=== PATIENT | male | born 1960 | race Caucasian/White ===

== ENCOUNTER → 2017-03-19 | Outpatient (CLI) | payer BC ==
--- NOTE | 2017-03-19 09:22 | CT ---
EXAMINATION TYPE: CT abdomen pelvis w con DATE OF EXAM: 03/19/2017 COMPARISON: 03/12/2016 HISTORY: Carcinoid Tumor CT DLP: 1084 mGycm CONTRAST: CT scan of the abdomen and pelvis is performed with Oral Contrast and with IV Contrast, patient injec adriana with 100 mL of Omnipaque 300. FINDINGS: LUNG BASES-: No visible nodule. No infiltrate. LIVER/GB: No calcified gallstones. No solid space occupying hepatic lesion. Tiny cyst left hepatic lobe lateral segment measuring 5 mm. Biliary tree is of normal caliber. PANCREAS: No inflammation. No distinct mass. SPLEEN: No splenic enlargement. No lesion seen. ADRENALS: No nodule. No thickening. KIDNEYS/BLADDER: No hydronephrosis. No nephrolithiasis. No disctinct renal mass. Urinary bladder g rossly unremarkable. BOWEL: Normal appendix. Normal bowel caliber. No inflammation. GENITAL ORGANS: Prostate enlargement with central glandular calcification. LYMPH NODES: Noted are prominent periportal lymph nodes measuring up to 1.5 cm minimally enlarged rel ative to the prior study with maximal measurement of 1.4 cm. There is an enlarged SMA axis lymph node measuring 1.4 cm versus 7 mm previously. There is also an enlarged aorto intracaval lymph node which currently measures 1.2 cm in short axis versus 6 mm previously. Stable small lymph nodes are subcent imeter in size within the small bowel mesentery. No inguinal or iliac chain adenopathy appreciated. AORTA: No significant abnormality. OSSEOUS STRUCTURES: No significant abnormality is seen. OTHER: Small focus of soft tissue within the small bowel mesentery measuring approximately 7 mm is un changed and may reflect site of carcinoid tumor. Overall there is no significant interval change. No new soft tissue masses are identified. IMPRESSION: 1. Stable focus of soft tissue within the small bowel mesentery which may reflect a residual carcinoi d. 2. Nonspecific Enlarging lymph nodes within the marko hepatis, SMA axis and aorto intracaval regions.
== END | disposition home or self-care (01) ==
LOC: RADCTMAIN 08:24
PROVIDERS: ATTEND Internal Medicine Hematology & Oncology
DX: C7A.019 Malignant carcinoid tumor of the small intestine, unspecified portion (principal); Z91.030 Bee allergy status; Z88.8 Allergy status to other drugs, medicaments and biological substances
CPT/HCPCS: 74177; Q9967

== ENCOUNTER → 2018-03-29 | Outpatient (CLI) | payer BC ==
--- NOTE | 2018-03-29 13:49 | CT ---
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 Delayed images through the kidneys and coronal/sagittal reconstructions perform ed. CT DLP: 1200 mGycm Automated exposure control for dose reduction was used. FINDINGS: Heart normal size without pericardial effusion. Tiny hiatal hernia. 5 mm inferior lingular pulmonary nodule axial image 1. Suggestion of small bronchial lymph nodes extending into the lower lobes, for e xample, axial images 1, 5, 6, and 7. No pleural effusion. Subcentimeter hypodensity left hepatic dome too small for accurate CT characterization, unchanged. Gallbladder, adrenal glands, kidneys, spleen with hilar splenule, pancreas appear within normal limit s. Redemonstrated upper retroperitoneal lymphadenopathy. Lymph nodes are either stable to slightly large r, for example: -left para-aortic axial image 29 measuring 1.2 cm, stable, - Upper aortocaval measuring 9 mm versus 8 mm, previously, - Aortocaval at the level of the kidneys measuring 1.4 cm versus 1.2 cm, previously, - Left para-aortic at the level of the kidneys measuring 9 mm versus 5 mm, previously - Retrocaval measuring 8 mm versus 7 mm, previously A couple mid mesenteric lymph nodes are borderline to mildly enlarged measuring 7 mm and 8 mm versus 7 mm, previously. Stable irregular soft tissue density in the right paramedian mid mesentery, axial image 45 measures 1 .9 cm, unchanged. No dilated small bowel, free fluid, or free air. There is moderate stool burden with oral contrast pr ogressed to the. No pericolonic inflammatory changes. Prostate gland enlarged at 4.7 cm with central prostatic calcifications and hypertrophy of the median lobe impressing into the posterior bladder base. A prominent right external iliac chain lymph node measures 7 mm. Prominent left external iliac chain lymph node measures 9 mm. These are unchanged. No abnormal fluid collection in the pelvis. Bones: Degenerative changes at the hips and right SI joint and degenerative disc disease L5-S1 along with bilateral L5 pars defects. IMPRESSION: 1. UNCHANGED IRREGULAR SOFT TISSUE DENSITY IN THE RIGHT PARAMEDIAN MID MESENTERY MEASURES 1.9 CM, POS SIBLY SITE OF TREATED CARCINOID. 2. UPPER RETROPERITONEAL AND A FEW SCATTERED MESENTERIC LYMPH NODES ARE BORDERLINE TO MILDLY ENLARGED AND ARE EITHER STABLE TO SLIGHTLY INCREASED IN SIZE, FOR EXAMPLE, AN AORTOCAVAL LYMPH NODE MEASURES 1.4 CM VERSUS 1.2 CM, ON 03/19/2017 AND 6 MM ON 03/12/2016. VERY SLOW AND INDOLENT PROGRESSION IS DIFFICU LT TO EXCLUDE. 3. SUGGESTION OF SOME SMALL BRONCHIAL LYMPH NODES IN THE VISUALIZED LOWER LOBES. ALSO, 5 MM INFERIOR LINGULAR PULMONARY NODULE. CONSIDER CONTRAST ENHANCED CT CHEST TO SURVEY THE LUNGS. 4. CORRELATE FOR BPH GIVEN MEDIAN LOBE HYPERTROPHY IMPRESSING ON THE POSTERIOR BLADDER BASE. 5. BILATERAL L5 PARS DEFECTS.
== END | disposition home or self-care (01) ==
LOC: RADCTMAIN 09:57
PROVIDERS: ATTEND Internal Medicine Hematology & Oncology
DX: R59.0 Localized enlarged lymph nodes (principal); R91.1 Solitary pulmonary nodule; C7A.019 Malignant carcinoid tumor of the small intestine, unspecified portion
CPT/HCPCS: 74177; Q9967

== ENCOUNTER 2020-04-25 12:48 | Inpatient (IN) | payer BC ==
[2020-04-25] MEDS ORDERED: SODIUM CHLORIDE 0.9% 500 ML 500 ML IV STA (13:05)
[2020-04-25] MEDS ORDERED: DEXTROSE 5% IN WATER 100 ML with AMIODARONE 150 MG IV ONE ×2 (13:05→13:39)
[2020-04-25] MEDS ORDERED: AMIODARONE 360 MG in DEXTROSE 5% IN WATER 200 ML IV ONE ×2 (13:05)
--- NOTE | 2020-04-25 13:22 | ED ---
General Adult HPI - General Chief complaint: Arrhythmia/Palpitations Stated complaint: Palpitations Time Seen by Provider: 04/25/20 13:00 Source: patient, RN notes reviewed, old records reviewed Mode of arrival: ambulatory Limitations: no limitations - History of Present Illness Initial comments: This is a 59-year-old male who presents emergency Department complaining that over the last couple of days he has noted his PVCs returning. Patient states he felt a little bit lightheaded as well. Patient states he's had a history of PVCs and was started on a beta ronny and that has been working over the last month. Patient states about 2 days ago he felt as though it stopped working. He PVCs on a regular basis. Patient denies any chest pain. Patient denies any fast heart rate that he appreciated. Patient denies any fever chills per patient denies any passing out episodes. Patient denies any headache patient denies numbness weakness. Patient is abdominal pain patient denies nausea vomiting diarrhea. - Related Data Home Medications Medication Instructions Recorded Confirmed DULoxetine HCL [Cymbalta] 60 mg PO HS 02/15/14 04/25/20 Omeprazole [PriLOSEC] 20 mg PO HS 02/15/14 04/25/20 lisinopriL [Zestril] 10 mg PO HS 02/15/14 04/25/20 Ascorbic Acid [Vitamin C] 500 mg PO DAILY 05/12/18 04/25/20 Cholecalciferol (Vitamin D3) 2,000 unit PO DAILY 05/12/18 04/25/20 [Vitamin D3] Melatonin 5 mg PO HS 05/12/18 04/25/20 Multivitamin [Men's Multi-Vitamin] 1 tab PO DAILY 05/12/18 04/25/20 EPINEPHrine (Auto Inject) [Epipen] 0.3 mg IM ONCE PRN 04/25/20 04/25/20 Metoprolol Tartrate [Lopressor] 12.5 mg PO HS 04/25/20 04/25/20 Metoprolol Tartrate [Lopressor] 25 mg PO DAILY 04/25/20 04/25/20 Montelukast [Singulair] 10 mg PO HS 04/25/20 04/25/20 Rosuvastatin [Crestor] 10 mg PO HS 04/25/20 04/25/20 Allergies Allergy/AdvReac Type Severity Reaction Status Date / Time venom-honey bee Allergy Anaphylaxis Verified 04/25/20 14:15 [bee venom (honey bee)] venlafaxine [From Effexor] AdvReac Rash/Hives Verified 04/25/20 14:15 Review of Systems ROS Statement: Those systems with pertinent positive or pertinent negative responses have been documented in the HPI. ROS Other: All systems not noted in ROS Statement are negative. Past Medical History Past Medical History: Cancer, Hyperlipidemia, Hypertension Additional Past Medical History / Comment(s): Skin CA, 3 iron infusions over the last month History of Any Multi-Drug Resistant Organisms: None Reported Past Surgical History: No Surgical Hx Reported Additional Past Surgical History / Comment(s): EGD/Colonoscopy; Hx GI bleed Past Anesthesia/Blood Transfusion Reactions: No Reported Reaction Past Psychological History: Anxiety, Depression Smoking Status: Never smoker Past Alcohol Use History: None Reported Past Drug Use History: None Reported - Past Family History Mother Family Medical History: Cancer Additional Family Medical History / Comment(s): Bowel CA General Exam - General Exam Comments Initial Comments: GENERAL: Patient is well-developed and well-nourished. Patient is nontoxic and well-hyd rated and is in mild distress. ENT: Neck is soft and supple. No significant lymphadenopathy is noted. Oropharynx is clear. Moist mucous membranes. Neck has full range of motion without eliciting any pain. EYES: The sclera were anicteric and conjunctiva were pink and moist. Extraocular movements were intact and pupils were equal round and reactive to light. Eyelids were unremarkable. PULMONARY: Unlabored respirations. Good breath sounds bilaterally. No audible rales rhonchi or wheezing was noted. CARDIOVASCULAR: Patient is tachycardic at 180 beats a minute ABDOMEN: Soft and nontender with normal bowel sounds. SKIN: Skin is clear with no lesions or rashes and otherwise unremarkable. NEUROLOGIC: Patient is alert and oriented x3. Cranial nerves II through XII are grossly int act. Motor and sensory are also intact. Normal speech, volume and content. Symmetrical smile. MUSCULOSKELETAL: Normal extremities with adequate strength and full range of motion. LYMPHATICS: No significant lymphadenopathy is noted PSYCHIATRIC: Normal psychiatric evaluation. Limitations: no limitations Course Vital Signs 04/25/20 04/25/20 04/25/20 12:52 13:54 14:00 Temperature 97.9 F Pulse Rate 38 L 68 66 Respiratory 18 16 16 Rate Blood Pressure 50/22 95/74 96/73 O2 Sat by Pulse 97 100 100 Oximetry Medical Decision Making - Medical Decision Making EKG shows a ventricular tachycardia 184 bpm QRS is under 22 QTC is 296 QTC is 518. Patient was given 150 of amiodarone and then started on amiodarone drip. I spoke with cardiology and they came down and see the patient wanted to cardiovert the patient. Patient was given 5 of Versed for the cardioversion and then we cardiovert the patient with 100 J that was synchronized. Patient converted into a sinus rhythm. EKG was done shows a sinus rhythm at 75 bpm CO interval is 223 is 90 QT interval 442 QTC is 493. Patient's EKG shows T-wave inversions and some ST segment depression in the precordial leads V3 through V6 Patient was started on heparin cardiology decided to take the patient and the component lab tech tomorrow. Patient's troponin was mildly elevated at 0.1 - Lab Data Result diagrams: 04/25/20 13:09 04/25/20 13:09 Lab Results 04/25/20 04/25/20 04/25/20 Range/Units 13:09 13:09 13:09 WBC 13.5 H (3.8-10.6) k/uL RBC 5.13 (4.30-5.90) m/uL Hgb 15.1 (13.0-17.5) gm/dL Hct 46.2 (39.0-53.0) % MCV 90.0 (80.0-100.0) fL MCH 29.4 (25.0-35.0) pg MCHC 32.7 (31.0-37.0) g/dL RDW 13.8 (11.5-15.5) % Plt Count 379 (150-450) k/uL Neutrophils % 77 % Lymphocytes % 12 % Monocytes % 8 % Eosinophils % 2 % Basophils % 1 % Neutrophils # 10.4 H (1.3-7.7) k/uL Lymphocytes # 1.6 (1.0-4.8) k/uL Monocytes # 1.0 (0-1.0) k/uL Eosinophils # 0.3 (0-0.7) k/uL Basophils # 0.1 (0-0.2) k/uL PT 9.9 (9.0-12.0) sec INR 0.9 (<1.2) APTT 24.8 (22.0-30.0) sec Sodium 137 (137-145) mmol/L Potassium 5.1 (3.5-5.1) mmol/L Chloride 103 (98-107) mmol/L Carbon Dioxide 24 (22-30) mmol/L Anion Gap 10 mmol/L BUN 33 H (9-20) mg/dL Creatinine 1.51 H (0.66-1.25) mg/dL Est GFR (CKD-EPI)AfAm 58 (>60 ml/min/1.73 sqM) Est GFR (CKD-EPI)NonAf 50 (>60 ml/min/1.73 sqM) Glucose 131 H (74-99) mg/dL Calcium 9.9 (8.4-10.2) mg/dL Magnesium 1.7 (1.6-2.3) mg/dL Total Bilirubin 0.6 (0.2-1.3) mg/dL AST 23 (17-59) U/L ALT 22 (4-49) U/L Alkaline Phosphatase 86 (38-126) U/L Troponin I (0.000-0.034) ng/mL Total Protein 7.4 (6.3-8.2) g/dL Albumin 4.6 (3.5-5.0) g/dL TSH 6.340 H (0.465-4.680) mIU/L 04/25/20 Range/Units 13:09 WBC (3.8-10.6) k/uL RBC (4.30-5.90) m/uL Hgb (13.0-17.5) gm/dL Hct (39.0-53.0) % MCV (80.0-100.0) fL MCH (25.0-35.0) pg MCHC (31.0-37.0) g/dL RDW (11.5-15.5) % Plt Count (150-450) k/uL Neutrophils % % Lymphocytes % % Monocytes % % Eosinophils % % Basophils % % Neutrophils # (1.3-7.7) k/uL Lymphocytes # (1.0-4.8) k/uL Monocytes # (0-1.0) k/uL Eosinophils # (0-0.7) k/uL Basophils # (0-0.2) k/uL PT (9.0-12.0) sec INR (<1.2) APTT (22.0-30.0) sec Sodium (137-145) mmol/L Potassium (3.5-5.1) mmol/L Chloride (98-107) mmol/L Carbon Dioxide (22-30) mmol/L Anion Gap mmol/L BUN (9-20) mg/dL Creatinine (0.66-1.25) mg/dL Est GFR (CKD-EPI)AfAm (>60 ml/min/1.73 sqM) Est GFR (CKD-EPI)NonAf (>60 ml/min/1.73 sqM) Glucose (74-99) mg/dL Calcium (8.4-10.2) mg/dL Magnesium (1.6-2.3) mg/dL Total Bilirubin (0.2-1.3) mg/dL AST (17-59) U/L ALT (4-49) U/L Alkaline Phosphatase (38-126) U/L Troponin I 0.132 H* (0.000-0.034) ng/mL Total Protein (6.3-8.2) g/dL Albumin (3.5-5.0) g/dL TSH (0.465-4.680) mIU/L Critical Care Time Critical Care Time: Yes Total Critical Care Time: 55 Disposition Clinical Impression: Ventricular tachycardia, Encounter for cardioversion procedure Disposition: ADMITTED IP TO THIS HOSP Referrals: Zafra Rizvi MD [Primary Care Provider] - 1-2 days Time of Disposition: 14:12
[2020-04-25 13:25] LABS: Basophils % (A) 1 %; Eosinophils % (A) 2 %; HCT 46.2 % (39.0-53.0); HGB 15.1 gm/dL (13.0-17.5); Lymphocytes % (A) 12 %; MCH 29.4 pg (25.0-35.0); MCHC 32.7 g/dL (31.0-37.0); Mean Platelet Volume 7.6; Monocytes % (A) 8 %; Neutrophils % (A) 77 %; Platelet Count 379 k/uL (150-450); RBC 5.13 m/uL (4.30-5.90); RDW 13.8 % (11.5-15.5); WBC 13.5 k/uL (3.8-10.6)
[2020-04-25 13:26] LABS: Basophils # (A) 0.1 k/uL (0-0.2); Eosinophils # (A) 0.3 k/uL (0-0.7); Lymphocytes # (A) 1.6 k/uL (1.0-4.8); Neutrophils # (A) 10.4 k/uL (1.3-7.7)
[2020-04-25] MEDS ORDERED: SODIUM CHLORIDE 0.9% 1,000 ML IV ONE (13:33)
[2020-04-25 13:39] LABS: INR 0.9 (<1.2); Partial Thromboplastin Time 24.8 sec (22.0-30.0); Prothrombin Time 9.9 sec (9.0-12.0)
[2020-04-25] MEDS ORDERED: MIDAZOLAM 1 MG/ML 5 ML VIAL IV STA (13:40)
[2020-04-25 13:49] LABS: Albumin 4.6 g/dL (3.5-5.0); Calcium 9.9 mg/dL (8.4-10.2); Magnesium 1.7 mg/dL (1.6-2.3); Potassium 5.1 mmol/L (3.5-5.1); Total Bilirubin 0.6 mg/dL (0.2-1.3); Total Protein 7.4 g/dL (6.3-8.2)
--- NOTE | 2020-04-25 14:09 | XR ---
EXAMINATION TYPE: XR chest 1V portable DATE OF EXAM: 04/25/2020 Comparison: 06/25/2014 Clinical History: 59-year-old male dysrhythmia Findings: Extra convex scoliosis along the thoracal lumbar junction. Heart upper limits of normal in size. Mild patchy density left mid and lower lung periphery and right base. No sizable effusion. Impression: Some subtle patchy density in the periphery of the left mid and lower lung and at the right base. Fin dings could reflect areas of atelectasis or developing infiltrates. Follow-up recommended.
[2020-04-25] MEDS ORDERED: HEPARIN SODIUM,PORCINE 5,000 UNIT/ML 1 ML VIAL IV PRN (14:19)
[2020-04-25] MEDS ORDERED: HEPARIN SODIUM,PORCINE 5,000 UNIT/ML 1 ML VIAL IV ONE (14:19)
[2020-04-25] MEDS ORDERED: SODIUM CHLORIDE 0.9% 1,000 ML IV STA (14:21)
[2020-04-25] MEDS ORDERED: NITROGLYCERIN SL TABS 0.4 MG TAB SUBLINGUAL PRN (14:22)
[2020-04-25] MEDS ORDERED: HEPARIN SOD,PORK IN 0.45% NACL 25,000 UNIT in 0.45% NACL 1 250ML.BAG IV SCH (14:30)
[2020-04-25] MEDS: ASPIRIN 81 MG PO SCH (14:33)
[2020-04-25] MEDS ORDERED: ALPRAZolam 0.25 MG TAB PO PRN (14:45)
--- NOTE | 2020-04-25 14:46 | P.CRDCN ---
History of Present Illness History of present illness: HISTORY OF PRESENTING ILLNESS This is a pleasant 59-year-old male past medical history significant for hypertension, dyslipidemia and recent diagnosis of nonsustained ventricular ectopy. He follows in the office with Dr. Lantigua. We have been asked to see in consultation for complex tachycardia. He presented to the emergency department with complaints of lack of energy and palpitations that has been going on for the previous 2 days. He also has some intermittent dizziness. He denies chest pain, shortness of breath, nausea, vomiting or diaphoresis. On arrival EKG revealed wide complex ventricular tachycardia with heart rate between 170-180. Blood pressure 50/22 and 89/41 on the monitor. amiodarone bolus intiated per ER physician. Dr. Meredith at the bedside suggesting IV sedation and cardiosion. He underwent synchronized cardioversion with 100 joules achieving return to sinus mechanism initially with slight return of VT for 45 seconds and then back to sinus with T-wave inversion. We have called for a stat echo. Troponin 0.132. Heparin infusion initiated. Other laboratory data reviewed, WBC 13.5, hemoglobin 15.1, platelets 379, sodium 137, potassium 5.1, creatinine 1.51 with a GFR of 50, magnesium 1.7, troponin 0.132 and TSH 6.34. He underwent a workup in the office with Dr. Lantigua last month secondary to ventricular ectopy noted on an stress testing performed [facility]. The stress test was done 02/28/20 and revealed normal LV function with excellent exercise capacity and a single 5-beart fun of wide complex tachycardia. Dr. Lantigua saw him in the office for further evaluation and recommended initiating beta blockers and do a repeat stress test on beta blockers. The Holter monitor revealed a 7% PVC burden and the repeat stress test was negative for stress-induced ischemia with occasional PVC's towards and peeak and into early recovery. REVIEW OF SYSTEMS At the time of my exam: CONSTITUTIONAL: Denies fever or chills. CARDIOVASCULAR: Complains of palpitations and dizziness for the last 2 days. Denies chest pain, shortness of breath, orthopnea or PND. RESPIRATORY: Denies cough. GASTROINTESTINAL: Denies abdominal pain, diarrhea, constipation, nausea or vomiting. MUSCULOSKELETAL: Denies myalgias. NEUROLOGIC: Denies numbness, tingling or weakness. ENDOCRINE: Denies fatigue, weight change, polydipsia or polyurina. GENITOURINARY: Denies burning, hematuria or urgency with micturation. HEMATOLOGIC: Denies history of anemia or bleeding. PHYSICAL EXAMINATION Blood pressure 96/73 heart rate 66 afebrile and maintaining oxygen saturation on nonrebreather. CONSTITUTIONAL: No apparent distress. HEENT: Head is normocephalic. Pupils are equal, round. Sclerae anicteric. Mucous membranes of the mouth are moist. No JVD. No carotid bruit. CHEST EXAMINATION: Lungs are clear to auscultation. No chest wall tenderness is noted on palpation or with deep breathing. HEART EXAMINATION: Regular rate and rhythm. S1, S2 heard. No murmurs, gallops or rub. ABDOMEN: Soft, nontender. Positive bowel sounds. EXTREMITIES: 2+ peripheral pulses, no lower extremity edema and no calf tenderness. NEUROLOGIC EXAMINATION: Patient is awake, alert and oriented x3. ASSESSMENT Sustained ventricular tachycardia status post cardioversion Acute kidney injury likely from hypotension Troponin elevation Leukocytosis History of nonsustained ventricular tachycardia Hypertension Dyslipidemia PLAN Continue amiodarone and heparin infusion. Initiate aspirin 81 mg daily and atorvastatin 40 mg daily. Give lopressor 25 mg BID if his blood pressure can tolerate. Troponin elevation could be related to persistent sustained ventricluar tachycardia and poor perfusion.. We will continue to trend troponins and make further diagnosis tomorrow. Obtain 2-D echocardiogram and Doppler study to assess cardiac structure and function. Recommend proceeding with cardiac catheterization tomorrow to assess for underlying coronary artery disease. I have discussed the risks, benefits and alternative therapies for the above-mentioned procedure and for both shiva tion/analgesia as well as necessary blood product administration, if indicated, as they pertain to this patient. The patient has indicated understanding and acceptance of the risks and procedures discussed. Further recommendations to follow based on clinical course. Thank you kindly for this consultation. Nurse Practitioner note has been reviewed, I agree with a documented findings and plan of care. Patient was seen and examined. Past Medical History Past Medical History: Cancer, Hyperlipidemia, Hypertension Additional Past Medical History / Comment(s): Skin CA, 3 iron infusions over the last month History of Any Multi-Drug Resistant Organisms: None Reported Past Surgical History: No Surgical Hx Reported Additional Past Surgical History / Comment(s): EGD/Colonoscopy; Hx GI bleed Past Anesthesia/Blood Transfusion Reactions: No Reported Reaction Past Psychological History: Anxiety, Depression Smoking Status: Never smoker Past Alcohol Use History: None Reported Past Drug Use History: None Reported - Past Family History Mother Family Medical History: Cancer Additional Family Medical History / Comment(s): Bowel CA Medications and Allergies Home Medications Medication Instructions Recorded Confirmed Type DULoxetine HCL [Cymbalta] 60 mg PO HS 02/15/14 05/12/18 History Omeprazole [PriLOSEC] 20 mg PO HS 02/15/14 05/12/18 History Simvastatin [Zocor] 10 mg PO HS 02/15/14 05/12/18 History lisinopriL [Zestril] 10 mg PO HS 02/15/14 05/12/18 History Ascorbic Acid [Vitamin C] 500 mg PO DAILY 05/12/18 05/12/18 History Cholecalciferol (Vitamin D3) 2,000 unit PO DAILY 05/12/18 05/12/18 History [Vitamin D3] Melatonin 5 mg PO HS 05/12/18 05/12/18 History Multivitamin [Men's Multi-Vitamin] 1 each PO DAILY 05/12/18 05/12/18 History Allergies Allergy/AdvReac Type Severity Reaction Status Date / Time venom-honey bee Allergy Anaphylaxis Verified 04/25/20 12:54 [bee venom (honey bee)] venlafaxine [From Effexor] AdvReac Rash/Hives Verified 04/25/20 12:54 Physical Exam Vitals: Vital Signs Temp Pulse Resp BP Pulse Ox 04/25/20 12:52 97.9 F 38 L 18 50/22 97 Intake and Output 04/24/20 04/25/20 04/25/20 22:59 06:59 14:59 Other: Weight 83.915 kg Results 04/25/20 13:09 04/25/20 13:09 Cardiac Enzymes 04/25/20 Range/Units 13:09 AST 23 (17-59) U/L Coagulation 04/25/20 Range/Units 13:09 PT 9.9 (9.0-12.0) sec APTT 24.8 (22.0-30.0) sec CBC 04/25/20 Range/Units 13:09 WBC 13.5 H (3.8-10.6) k/uL RBC 5.13 (4.30-5.90) m/uL Hgb 15.1 (13.0-17.5) gm/dL Hct 46.2 (39.0-53.0) % Plt Count 379 (150-450) k/uL Comprehensive Metabolic Panel 04/25/20 Range/Units 13:09 Sodium 137 (137-145) mmol/L Potassium 5.1 (3.5-5.1) mmol/L Chloride 103 (98-107) mmol/L Carbon Dioxide 24 (22-30) mmol/L BUN 33 H (9-20) mg/dL Creatinine 1.51 H (0.66-1.25) mg/dL Glucose 131 H (74-99) mg/dL Calcium 9.9 (8.4-10.2) mg/dL AST 23 (17-59) U/L ALT 22 (4-49) U/L Alkaline Phosphatase 86 (38-126) U/L Total Protein 7.4 (6.3-8.2) g/dL Albumin 4.6 (3.5-5.0) g/dL Current Medications Generic Name Dose Route Start Last Admin Trade Name Freq PRN Reason Stop Dose Admin Amiodarone HCl 360 mg/ 200 mls @ 33.333 mls/hr 04/25/20 13:05 04/25/20 13:12 Dextrose/Water IV 04/25/20 19:04 1 mg/min .Q6H ONE 33.333 mls/hr Administration Protocol 1 MG/MIN Sodium Chloride 1,000 mls @ 999 mls/hr 04/25/20 13:33 04/25/20 13:33 Saline 0.9% IV 04/25/20 14:33 999 mls/hr .Q1H1M ONE Administration Intake and Output 04/24/20 04/25/20 04/25/20 22:59 06:59 14:59 Other: Weight 83.915 kg Patient Weight 04/26/20 06:59 Weight 83.915 kg 04/25/20 13:09 04/25/20 13:09
[2020-04-25 15:29] LABS: Glucose,Whole Blood 65 mg/dL (75-99)
[2020-04-25 17:42] LABS: Calcium 8.9 mg/dL (8.4-10.2); Potassium 5.1 mmol/L (3.5-5.1)
[2020-04-25] MEDS: AMIODARONE 300 MG in DEXTROSE 5% IN WATER 250 ML IV SCH ×2 (19:50)
[2020-04-25] MEDS: METOPROLOL TARTRATE 25 MG TAB PO SCH (20:18)
[2020-04-25] MEDS: MELATONIN 5 MG TABLET PO SCH (20:19)
[2020-04-25] MEDS: DULoxetine HCL 60 MG CAPSULE.DR PO SCH (20:19)
[2020-04-25] MEDS: PANTOPRAZOLE 40 MG TABLET PO SCH (20:19)
[2020-04-25] MEDS: MONTELUKAST 10 MG TAB PO SCH (20:19)
[2020-04-25] MEDS: ATORVASTATIN 40 MG TAB PO SCH (20:19)
--- NOTE | 2020-04-25 22:38 | P.HPIM ---
History of Present Illness H&P Date: 04/25/20 Chief Complaint: Ventricular tachycardia, lightheadedness and dizziness, osorio rtness of breath 59-year-old male one of my office patient who is known to have history of carcinoid doses, chronic anemia, hypertension and hyperlipidemia who developed to have mild arrhythmia with PVCs and bigeminy had a Holter monitor came back slightly bit abnormal ended up going for simple echo stress test at [facility] did not show any major abnormality, patient continued to have significant arrhythmia and was referred to Dr. Lantigua cardiology where was seen has another heart monitor showed complex PVCs also ended up going for another stress test after he was on beta ronny for. This time with no major abnormality. Patient had and arrangement for waiting this last weekend for his daughter was in exhausting weekend. Patient developed for the last 48 hours severe tiredness fatigue mild lightheadedness dizziness along with presyncope like symptom with feeling of palpitation on and off ended up coming to the emergency department after he called Dr. Lantigua office today and was suggested to increase his metoprolol to 25 mg twice a day patient did not take the second dose because he was was very symptomatic was seen at [facility] and found to have wide complex ventricular tachycardia with pulse of 170-180 with the blood pressure in the 50s at the time. Cardiology were contacted patient was started on amiodarone bolus dose and drip continue to have V. tach patient ended up seen by Dr. Meredith and had IV sedation and cardioversion with 100 J achieve returning to sinus rhythm initially and then run 45 seconds V. tach and developed T waves inversion in the lateral leads. Patient troponin was mildly elevated this kidney function was slightly bit down from his baseline with decreased GFR down to 15 with magnesium of 1.7. Patient was placed on heparin drip and amiodarone and admitted to the hospital he was seen cardiology and planning to go for heart cath tomorrow. Review of Systems CONSTITUTIONAL: Well-developed no acute respiratory distress. EYES: No icterus sclerae, no conjunctivitis. EARS, NOSE, MOUTH, THROAT, and FACE: No sore throat, lymphadenopathy, carotid bruits or deformity. RESPIRATORY: No SOB cough or wheezes. CARDIOVASCULAR: Mild shortness of breath positive palpitation with PND and orthopnea. GASTROINTESTINAL: No Abd pain, Nausea or vomiting, no Diarrhea or constipation, No GI Bleed, no distention or masses. GENITOURINARY: Negative for Hematuria or UTI, no kidney stones. INTEGUMENT/BREAST: Negative for any muscular injury with mild osteoarthritis.. HEMATOLOGIC/LYMPHATIC: Negative for bleed or purpura. MUSCULOSKELTAL: Negative for Myalgia or arthralgia. NEURLOGICAL: No LOC, Sz or syncope, blurred vision dizziness or abnormality.. BEHAVIORAL/PSYCH: Negative. ENDOCRINE: Negative. Past Medical History Past Medical History: Cancer, Hyperlipidemia, Hypertension Additional Past Medical History / Comment(s): Skin CA, History of Any Multi-Drug Resistant Organisms: None Reported Past Surgical History: No Surgical Hx Reported Additional Past Surgical History / Comment(s): EGD/Colonoscopy; Hx GI bleed 2013 Past Anesthesia/Blood Transfusion Reactions: No Reported Reaction Past Psychological History: Anxiety, Depression Smoking Status: Never smoker Past Alcohol Use History: None Reported Past Drug Use History: None Reported - Past Family History Mother Family Medical History: Cancer Additional Family Medical History / Comment(s): Bowel CA Medications and Allergies Home Medications Medication Instructions Recorded Confirmed Type DULoxetine HCL [Cymbalta] 60 mg PO HS 02/15/14 04/25/20 History Omeprazole [PriLOSEC] 20 mg PO HS 02/15/14 04/25/20 History lisinopriL [Zestril] 10 mg PO HS 02/15/14 04/25/20 History Ascorbic Acid [Vitamin C] 500 mg PO DAILY 05/12/18 04/25/20 History Cholecalciferol (Vitamin D3) 2,000 unit PO DAILY 05/12/18 04/25/20 History [Vitamin D3] Melatonin 5 mg PO HS 05/12/18 04/25/20 History Multivitamin [Men's Multi-Vitamin] 1 tab PO DAILY 05/12/18 04/25/20 History EPINEPHrine (Auto Inject) [Epipen] 0.3 mg IM ONCE PRN 04/25/20 04/25/20 History Metoprolol Tartrate [Lopressor] 12.5 mg PO HS 04/25/20 04/25/20 History Metoprolol Tartrate [Lopressor] 25 mg PO DAILY 04/25/20 04/25/20 History Montelukast [Singulair] 10 mg PO HS 04/25/20 04/25/20 History Rosuvastatin [Crestor] 10 mg PO HS 04/25/20 04/25/20 History Allergies Allergy/AdvReac Type Severity Reaction Status Date / Time venom-honey bee Allergy Anaphylaxis Verified 04/25/20 14:15 [bee venom (honey bee)] venlafaxine [From Effexor] AdvReac Rash/Hives Verified 04/25/20 14:15 Physical Exam Vitals: Vital Signs Temp Pulse Pulse Resp BP BP Pulse Ox 04/25/20 20:00 106 H 16 125/93 97 04/25/20 16:00 67 16 112/81 99 04/25/20 15:49 97.9 F 64 16 118/86 99 04/25/20 15:00 64 16 118/86 99 04/25/20 14:00 66 16 96/73 100 04/25/20 13:54 68 16 95/74 100 04/25/20 12:52 97.9 F 38 L 18 50/22 97 Intake and Output 04/25/20 04/25/20 04/25/20 06:59 14:59 22:59 Intake Total 240 Balance 240 Intake: Oral 240 Other: # Voids 1 Weight 83.915 kg 83.915 kg General Appearance: Alert, cooperative, no distress, appears stated age. Neck HEENT: Supple, no lymphadenopathy, no thyroid enlargement, no carotid bruits. Lungs: Clear to auscultation without crackles or wheezes no rhonchi, no deformity. Chest Wall: Chest wall normal expansion with deep inspiration no tenderness and no deformity was found on exam, no costochondral pain or discomfort. Heart: Regular rate and rhythm, S1, S2 normal, no murmur, rub or gallop. Back: Symmetric, no curvature, ROM normal, no CVA tenderness. Abdomen: Soft, non-tender, bowel sounds active all four quadrants, no masses, no organomegaly. Extremities: Extremities normal, atraumatic, no cyanosis or edema. Pulses: 2+ and symmetric. Skin: Skin color, texture, tugor normal, no rashes or lesions. Neurologic: Alert oriented x3 cranial nerves II through XII intact, no motor deficit, no abnormal balance or gait. Results CBC & Chem 7: 04/25/20 13:09 04/25/20 16:36 Labs: Abnormal Lab Results - Last 24 Hours (Table) 04/25/20 04/25/2004/25/20 Range/Units 13:09 13:09 13:09 WBC 13.5 H (3.8-10.6) k/uL Neutrophils # 10.4 H (1.3-7.7) k/uL APTT (22.0-30.0) sec Chloride (98-107) mmol/L Carbon Dioxide (22-30) mmol/L BUN 33 H (9-20) mg/dL Creatinine 1.51 H (0.66-1.25) mg/dL Glucose 131 H (74-99) mg/dL POC Glucose (mg/dL) (75-99) mg/dL Troponin I 0.132 H* (0.000-0.034) ng/mL TSH 6.340 H (0.465-4.680) mIU/L 04/25/20 04/25/20 04/25/20 Range/Units 15:26 16:36 16:36 WBC (3.8-10.6) k/uL Neutrophils # (1.3-7.7) k/uL APTT (22.0-30.0) sec Chloride 108 H (98-107) mmol/L Carbon Dioxide 20 L (22-30) mmol/L BUN 30 H (9-20) mg/dL Creatinine (0.66-1.25) mg/dL Glucose 113 H (74-99) mg/dL POC Glucose (mg/dL) 65 L (75-99) mg/dL Troponin I 0.102 H* (0.000-0.034) ng/mL TSH (0.465-4.680) mIU/L 04/25/20 04/25/20 Range/Units 19:37 19:37 WBC (3.8-10.6) k/uL Neutrophils # (1.3-7.7) k/uL APTT 51.8 H (22.0-30.0) sec Chloride (98-107) mmol/L Carbon Dioxide (22-30) mmol/L BUN (9-20) mg/dL Creatinine (0.66-1.25) mg/dL Glucose (74-99) mg/dL POC Glucose (mg/dL) (75-99) mg/dL Troponin I 0.102 H* (0.000-0.034) ng/mL TSH (0.465-4.680) mIU/L Thrombosis Risk Factor Assmnt - DVT/VTE Prophylaxis DVT/VTE Prophylaxis: Pharmacologic Prophylaxis ordered, Mechanical Prophylaxis ordered - Choose All That Apply Each Factor Represents 1 point: Age 41-60 years Other Risk Factors: No Thrombosis Risk Factor Assessment Total Risk Factor Score: 1 Thrombosis Risk Factor Assessment Level: Low Risk Assessment and Plan Assessment: 1 sustained ventricular tachycardia: Post cardioversion remain on amiodarone and heparin drip at this point. Cardiology was seen patient in going for heart cath tomorrow might need to go for EP study and furthermore might need an ICD. 2 elevated troponin with possible CAD with negative stress test twice recently patient will be going for heart cath depending on the results of the side and further management. 3 acute kidney injury: Most likely from hypoperfusion with a ventricular tachycardia continue fluid resuscitation support the blood pressure repeat B UN/creatinine. 4 history of iron deficiency anemia: Has been on iron supplementation see hematology and go for iron infusion every so often. 5 hyperlipidemia: Remain on atorvastatin 40 mg daily. 6 chronic history of depression: Patient doing very well on duloxetine 60 mg daily. 7 severe ALLERGY: Remain on decongestant and Singulair on regular basis. 8 severe gastroesophageal reflux syndrome: Continue patient on pantoprazole 40 mg daily. 9 DVT prophylaxis: Patient remain on heparin drip at this point. CODE STATUS: Full code. Admit patient to inpatient service for more than 2 night stay.
[2020-04-25] MEDS: ALPRAZolam 0.5 MG TAB PO PRN (23:35)
[2020-04-26] MEDS ORDERED: ASPIRIN 325 MG TAB PO ONE (06:00)
[2020-04-26] MEDS: AMIODARONE 300 MG in DEXTROSE 5% IN WATER 250 ML IV SCH ×2 (06:14)
[2020-04-26] MEDS: METOPROLOL TARTRATE 25 MG TAB PO SCH (06:15)
[2020-04-26] MEDS: ASPIRIN 81 MG PO SCH (06:21)
[2020-04-26 08:08] LABS: Basophils # (A) 0.1 k/uL (0-0.2); Basophils % (A) 1 %; Eosinophils # (A) 0.2 k/uL (0-0.7); Eosinophils % (A) 2 %; HCT 40.8 % (39.0-53.0); HGB 13.4 gm/dL (13.0-17.5); Lymphocytes # (A) 1.4 k/uL (1.0-4.8); Lymphocytes % (A) 14 %; MCH 29.7 pg (25.0-35.0); MCHC 32.9 g/dL (31.0-37.0); MCV 90.3 fL (80.0-100.0); Mean Platelet Volume 7.9; Monocytes # (A) 0.6 k/uL (0-1.0); Monocytes % (A) 6 %; Neutrophils # (A) 7.2 k/uL (1.3-7.7); Neutrophils % (A) 75 %; Platelet Count 278 k/uL (150-450); RBC 4.52 m/uL (4.30-5.90); RDW 13.8 % (11.5-15.5); WBC 9.6 k/uL (3.8-10.6)
[2020-04-26 08:12] LABS: Magnesium 1.7 mg/dL (1.6-2.3)
[2020-04-26 08:13] LABS: Calcium 8.5 mg/dL (8.4-10.2); Potassium 4.4 mmol/L (3.5-5.1)
[2020-04-26] MEDS ORDERED: ASPIRIN 325 MG TAB PO SCH (09:00)
[2020-04-26] MEDS ORDERED: LIDOCAINE 1% INJ 10MG/ML (20 ML MDV) ONE (09:13)
[2020-04-26] MEDS ORDERED: fentaNYL (PF) 50 MCG/ML 2 ML AMP ONE (09:14)
[2020-04-26] MEDS ORDERED: VERAPAMIL 2.5 MG/ML 2 ML AMP ONE (09:14)
[2020-04-26] MEDS ORDERED: IV FLUID CONTINUATION 1,000 ML IV ONE (09:15)
[2020-04-26] MEDS ORDERED: MIDAZOLAM 2 MG/2 ML VIAL IV ONE (09:30)
[2020-04-26] MEDS ORDERED: fentaNYL (PF) 50 MCG/ML 2 ML AMP IV ONE (09:30)
[2020-04-26] MEDS ORDERED: LIDOCAINE 1% INJ 10MG/ML (20 ML MDV) SQ ONE (09:33)
[2020-04-26] MEDS ORDERED: VERAPAMIL SYRINGE (5 MG/10 ML) INTRAARTER ONE (09:35)
[2020-04-26] MEDS ORDERED: HEPARIN SODIUM 1,000 UN/ML (10ML VL) ONE (09:36)
[2020-04-26] MEDS ORDERED: HEPARIN SODIUM 1,000 UN/ML (10ML VL) IV ONE (09:37)
[2020-04-26] MEDS ORDERED: IOPAMIDOL-370 125ML BTL INJ ONE (09:45)
[2020-04-26] MEDS ORDERED: RX INFO: IV CONTRAST WAS GIVEN 1 EACH MISC MISCELLANE PRN (10:01)
--- NOTE | 2020-04-26 10:12 | P.CARDCATH ---
Date of Procedure: 04/26/20 Preoperative Diagnosis: Ventricular tachycardia, abnormal troponin and abnormal EKG Postoperative Diagnosis: Normal coronary arteries Procedure(s) Performed: Left heart catheterization without left ventriculography Description of Procedure: HISTORY: This is a 59-year-old gentleman with no significant past medical history was noted to have episodes of ventricular tachycardia on the stress test and also spontaneously. Patient was treated with beta ronny. Patient was admitted to the hospital yesterday through emergency room with sustained V. tach which was monomorphic. Patient had a synchronized cardioversion with successful conversion to sinus rhythm. EKG showed deep T-wave inversion in anterior leads with mildly abnormal troponins. Patient is advised to have a cardiac catheterization for definitive diagnosis CONSENT:I have discussed the risks, benefits and alternative therapies for the above-mentioned procedure and for both sedation/analgesia as well as necessary blood product administration, if indicated, as they pertain to this patient. The patient has indicated understanding and acceptance of the risks and procedures discussed. PROCEDURE: Patient was brought to the lab in a fasting state. Patient was given some IV sedation. The right wrist is infiltrated with lidocaine and right radial artery was entered using Seldinger technique. A 6-Yoruba catheter was left in place and selective coronary arteriography was performed. Patient tolerated the procedure well. TR band was applied for hemostasis. No immediate complications were noted and patient was transferred to [facility] in a stable condition Conscious Sedation: Versed 1mg Fentanyl 50 g Duration 21minutes HEMODYNAMICS:the aortic pressure is 130/80. Left ventricle end-diastolic pressure is 16. There is no gradient across the aortic valve. SELECTIVE CORONARY ARTERIOGRAPHY: LEFT MAIN: This is normal length and free of occlusive disease THE LEFT ANTERIOR DESCENDING CORONARY ARTERY: This is a moderate caliber vessel giving rise to 2 diagonal branches. The LAD and branches are free of occlusive disease THE LEFT CIRCUMFLEX AND IS CORONARY ARTERY: THIS IS A MODERATE CALIBER VESSEL GIVING RISE TO 2 OM BRANCHES. FREE OF ANY OCCLUSIVE DISEASE THE RIGHT CORONARY ARTERY: This is a dominant vessel, free of any occlusive disease LEFT VENTRICULOGRAPHY: Not performed FINAL IMPRESSION: normal coronary arteries. Mildly elevated end-diastolic pressure PLIAN :It appears that patient has probably has right or left ventricular outflow tract V. tach. Patient most probably will require ablation and also MRI to rule out any infiltrative diseases PROGNOSIS: Fair
[2020-04-26] MEDS ORDERED: METOPROLOL TARTRATE 25 MG TAB PO STA (10:26)
[2020-04-26] MEDS: SODIUM CHLORIDE 0.9% 1,000 ML IV SCH ×2 (10:48→20:48)
--- NOTE | 2020-04-26 12:00 | ECHOF ---
Referral Reason:lvfunction MEASUREMENTS -------- HEIGHT: 66.0 cm WEIGHT: 185.0 kg BP: IVSd: 1.4 cm (0.6 - 1.1) LVIDd: 3.9 cm (3.9 - 5.3) LVPWd: 1.3 cm (0.6 - 1.1) IVSs: 1.5 cm LVIDs: 3.3 cm LVPWs: 1.7 cm Ao Diam: 3.5 cm (2.0 - 3.7) AV Cusp: 1.9 cm (1.5 - 2.6) LA Diam: 2.7 cm (2.7 - 3.8) MV EXCURSION: 12.842 mm (> 18.000) MV EF SLOPE: 133 mm/s (70 - 150) EPSS: 0.7 cm MV E Jhoan: 0.87 m/s MV DecT: 213 ms MV A Jhoan: 0.42 m/s MV E/A Ratio: 2.04 RAP: 5.00 mmHg RVSP: 20.55 mmHg FINDINGS -------- Sinus rhythm with extra systolic beats. This was a technically adequate study. The left ventricular size is normal. There is mild concentric left ventricular hypertrophy. Overa ll left ventricular systolic function is mildly impaired with, an EF between 45 - 50 %. Basal infer ior LV wall motion is hypokinetic. Basal inferoseptal LV wall motion is hypokinetic. Mid inferi or LV wall motion is hypokinetic. Right side appears enlarged. The left atrial size is normal. The right atrial size is normal. Lumason used The aortic valve is trileaflet, and appears structurally normal. No aortic stenosis or regurgitation. The mitral valve is normal. Mild mitral regurgitation is present. The tricuspid valve appears structurally normal. Mild tricuspid regurgitation present. Right vent ricular systolic pressure is normal at < 35 mmHg. There is no pulmonic regurgitation present. The aortic root size is normal. IVC Not well visulized. There is no pericardial effusion. CONCLUSIONS -------- 1. The left ventricular size is normal. 2. There is mild concentric left ventricular hypertrophy. 3. Overall left ventricular systolic function is mildly impaired with, an EF between 45 - 50 %. 4. Basal inferior LV wall motion is hypokinetic. 5. Mid inferior LV wall motion is hypokinetic. 6. The left atrial size is normal. 7. The aortic valve is trileaflet, and appears structurally normal. No aortic stenosis or regurgitati on. 8. Mild mitral regurgitation is present. 9. Mild tricuspid regurgitation present. 10. There is no pericardial effusion. SIGNALER: Lucia Mercado RDCS
--- NOTE | 2020-04-26 13:26 | P.PN ---
Subjective Progress Note Date: 04/26/20 HISTORY OF PRESENT ILLNESS 59-year-old male one of my office patient who is known to have history of carcinoid doses, chronic anemia, hypertension and hyperlipidemia who developed t o have mild arrhythmia with PVCs and bigeminy had a Holter monitor came back slightly bit abnormal ended up going for simple echo stress test at [facility] did not show any major abnormality, patient continued to have significant arrhythmia and was referred to Dr. Lantigua cardiology where was seen has another heart monitor showed complex PVCs also ended up going for another stress test after he was on beta ronny for. This time with no major abnormality. Patient had and arrangement for waiting this last weekend for his daughter was in exhausting weekend. Patient developed for the last 48 hours severe tiredness fatigue mild lightheadedness dizziness along with presyncope like symptom with f eeling of palpitation on and off ended up coming to the emergency department after he called Dr. Lantigua office today and was suggested to increase his metoprolol to 25 mg twice a day patient did not take the second dose because he was was very symptomatic was seen at [facility] and found to have wide complex ventricular tachycardia with pulse of 170-180 with the blood pressure in the 50s at the time. Cardiology were contacted patient was started on amiodarone bolus dose and drip continue to have V. tach patient ended up seen by Dr. Meredith and had IV sedation and cardioversion with 100 J achieve returning to sinus rhythm initially and then run 45 seconds V. tach and developed T waves inversion in the lateral leads. Patient troponin was mildly elevated this kidney function was slightly bit down from his baseline with decreased GFR down to 15 with magnesium of 1.7. Patient was placed on heparin drip and amiodarone and admitted to the hospital he was seen cardiology and plan yanique to go for heart cath tomorrow. 04/25: Patient underwent heart catheterization today which revealed normal coronary arteries. Mildly elevated end-diastolic pressure. Echocardiogram reveals EF of 45-50% with mild concentric left hypertrophy, mild mitral regurgitation, mild tricuspid regurgitation. Patient has been afebrile, heart rate 73, blood pressure 117/72, pulse ox 99% on room air. REVIEW OF SYSTEMS CONSTITUTIONAL: Well-developed no acute respiratory distress. No fevers. EYES: No icterus sclerae, no conjunctivitis. EARS, NOSE, MOUTH, THROAT, and FACE: No sore throat, lymphadenopathy, carotid bruits or deformity. RESPIRATORY: No SOB cough or wheezes. CARDIOVASCULAR: Mild shortness of breath positive palpitation with PND and orthopnea. GASTROINTESTINAL: No Abd pain, Nausea or vomiting, no Diarrhea or constipation, No GI Bleed, no distention or masses. GENITOURINARY: Negative for Hematuria or UTI, no kidney stones. INTEGUMENT/BREAST: Negative for any muscular injury with mild osteoarthritis.. HEMATOLOGIC/LYMPHATIC: Negative for bleed or purpura. MUSCULOSKELTAL: Negative for Myalgia or arthralgia. NEURLOGICAL: No LOC, Sz or syncope, blurred vision dizziness or abnormality.. BEHAVIORAL/PSYCH: Negative. ENDOCRINE: Negative. PHYSICAL EXAMINATION General Appearance: Alert, cooperative, no distress, appears stated age. Neck HEENT: Supple, no lymphadenopathy, no thyroid enlargement, no carotid bruits. Lungs: Clear to auscultation without crackles or wheezes no rhonchi, no deformity. Chest Wall: Chest wall normal expansion with deep inspiration no tenderness and no deformity was found on exam, no costochondral pain or discomfort. Heart: Regular rate and rhythm, S1, S2 normal, no murmur, rub or gallop. Back: Symmetric, no curvature, ROM normal, no CVA tenderness. Abdomen: Soft, non-tender, bowel sounds active all four quadrants, no masses, no organomegaly. Extremities: Extremities normal, atraumatic, no cyanosis or edema. Pulses: 2+ and symmetric. Skin: Skin color, texture, tugor normal, no rashes or lesions. Neurologic: Alert oriented x3 cranial nerves II through XII intact, no motor deficit, no abnormal balance or gait. ASSESSMENT AND PLAN 1 sustained ventricular tachycardia: Post cardioversion remain on amiodarone and heparin drip at this point. Heart catheterization with normal coronary arteries. Dr. Kat consult has been added by cardiology. 2 elevated troponin with possible CAD with negative stress test twice recently patient will be going for heart cath depending on the results of the side and further management. 3 acute kidney injury: Most likely from hypoperfusion with a ventricular tachycardia continue fluid resuscitation support the blood pressure repeat BUN/creatinine. 4 history of iron deficiency anemia: Has been on iron supplementation see hematology and go for iron infusion every so often. 5 hyperlipidemia: Remain on atorvastatin 40 mg daily. 6 chronic history of depression: Patient doing very well on duloxetine 60 mg daily. 7 severe ALLERGY: Remain on decongestant and Singulair on regular basis. 8 severe gastroesophageal reflux syndrome: Continue patient on pantoprazole 40 mg daily. 9 DVT prophylaxis: Patient remain on heparin drip at this point. CODE STATUS: Full code. DISCHARGE PLAN Home Impression and plan of care have been directed as dictated by the signing physician. Julienne Arrington nurse practitioner acting as scribe for signing physician. Objective - Vital Signs Vital signs: Vital Signs Temp 98.1 F 04/26/20 04:00 Pulse 76 04/26/20 04:00 Resp 16 04/26/20 04:00 BP 132/88 04/26/20 04:00 Pulse Ox 98 04/26/20 04:00 Intake & Output 04/25/20 04/26/20 04/26/20 18:59 06:59 18:59 Intake Total 240 873.926 Balance 240 873.926 Weight 83.915 kg Intake: Intake, IV Titration 573.926 Amount Amiodarone 300 mg In 450 Dextrose 5% in Water 250 ml @ 0.5 MG/MIN 25 mls/hr IV .Q10H JASON Rx#: [id number] Heparin Sod,Pork in 0.45% 123.926 NaCl 25,000 unit In 0.45 % NaCl 1 250ml.bag @ 11. 91 UNITS/KG/HR 9.994 mls/ hr IV .Q24H JASON Rx#: [id number] Oral 240 300 Other: Voiding Method Toilet # Voids 1 2 - Labs CBC & Chem 7: 04/26/20 07:24 04/26/20 07:24 Labs: Abnormal Lab Results - Last 24 Hours (Table) 04/25/20 04/25/20 04/25/20 Range/Units 13:09 13:09 13:09 WBC 13.5 H (3.8-10.6) k/uL Neutrophils # 10.4 H (1.3-7.7) k/uL APTT (22.0-30.0) sec Chloride (98-107) mmol/L Carbon Dioxide (22-30) mmol/L BUN 33 H (9-20) mg/dL Creatinine 1.51 H (0.66-1.25) mg/dL Glucose 131 H (74-99) mg/dL POC Glucose (mg/dL) (75-99) mg/dL Troponin I 0.132 H* (0.000-0.034) ng/mL Triglycerides (<150) mg/dL TSH 6.340 H (0.465-4.680) mIU/L 04/25/20 04/25/20 04/25/20 Range/Units 15:26 16:36 16:36 WBC (3.8-10.6) k/uL Neutrophils # (1.3-7.7) k/uL APTT (22.0-30.0) sec Chloride 108 H (98-107) mmol/L Carbon Dioxide 20 L (22-30) mmol/L BUN 30 H (9-20) mg/dL Creatinine (0.66-1.25) mg/dL Glucose 113 H (74-99) mg/dL POC Glucose (mg/dL) 65 L (75-99) mg/dL Troponin I 0.102 H* (0.000-0.034) ng/mL Triglycerides (<150) mg/dL TSH (0.465-4.680) mIU/L 04/25/20 04/25/20 04/26/20 Range/Units 19:37 19:37 07:24 WBC (3.8-10.6) k/uL Neutrophils # (1.3-7.7) k/uL APTT 51.8 H (22.0-30.0) sec Chloride (98-107) mmol/L Carbon Dioxide (22-30) mmol/L BUN (9-20) mg/dL Creatinine (0.66-1.25) mg/dL Glucose (74-99) mg/dL POC Glucose (mg/dL) (75-99) mg/dL Troponin I 0.102 H* (0.000-0.034) ng/mL Triglycerides 163 H (<150) mg/dL TSH (0.465-4.680) mIU/L 04/26/20 04/26/20 Range/Units 07:24 07:24 WBC (3.8-10.6) k/uL Neutrophils # (1.3-7.7) k/uL APTT 46.1 H (22.0-30.0) sec Chloride (98-107) mmol/L Carbon Dioxide (22-30) mmol/L BUN 23 H (9-20) mg/dL Creatinine (0.66-1.25) mg/dL Glucose 101 H (74-99) mg/dL POC Glucose (mg/dL) (75-99) mg/dL Troponin I (0.000-0.034) ng/mL Triglycerides (<150) mg/dL TSH (0.465-4.680) mIU/L
[2020-04-26] MEDS: ALPRAZolam 0.5 MG TAB PO PRN ×2 (15:47→22:19)
[2020-04-26] MEDS: METOPROLOL TARTRATE 50 MG TAB PO SCH (20:48)
[2020-04-26] MEDS: MONTELUKAST 10 MG TAB PO SCH (20:48)
[2020-04-26] MEDS: MELATONIN 5 MG TABLET PO SCH (20:48)
[2020-04-26] MEDS: ATORVASTATIN 40 MG TAB PO SCH (20:48)
[2020-04-26] MEDS: DULoxetine HCL 60 MG CAPSULE.DR PO SCH (20:48)
[2020-04-26] MEDS: PANTOPRAZOLE 40 MG TABLET PO SCH (20:48)
[2020-04-27] MEDS: ALPRAZolam 0.5 MG TAB PO PRN ×2 (06:45→22:52)
[2020-04-27] MEDS: SODIUM CHLORIDE 0.9% 1,000 ML IV SCH ×2 (06:45→20:23)
[2020-04-27] MEDS: ASPIRIN 81 MG PO SCH (08:16)
[2020-04-27] MEDS: METOPROLOL TARTRATE 50 MG TAB PO SCH ×2 (08:16→20:23)
[2020-04-27 08:23] LABS: Basophils % (A) 0 %; Eosinophils # (A) 0.2 k/uL (0-0.7); Eosinophils % (A) 2 %; HCT 41.3 % (39.0-53.0); HGB 13.7 gm/dL (13.0-17.5); Lymphocytes % (A) 10 %; MCH 29.8 pg (25.0-35.0); MCHC 33.2 g/dL (31.0-37.0); MCV 89.7 fL (80.0-100.0); Mean Platelet Volume 7.8; Monocytes # (A) 0.7 k/uL (0-1.0); Monocytes % (A) 7 %; Neutrophils # (A) 7.6 k/uL (1.3-7.7); Neutrophils % (A) 79 %; Platelet Count 260 k/uL (150-450); RBC 4.61 m/uL (4.30-5.90); RDW 13.8 % (11.5-15.5); WBC 9.6 k/uL (3.8-10.6)
[2020-04-27] MEDS ORDERED: Acetaminophen-Codeine 300-30mg TAB PO PRN (08:32)
[2020-04-27 08:44] LABS: Calcium 8.9 mg/dL (8.4-10.2); Magnesium 1.6 mg/dL (1.6-2.3); Potassium 4.9 mmol/L (3.5-5.1)
--- NOTE | 2020-04-27 09:56 | P.PN ---
Subjective Progress Note Date: 04/27/20 Principal diagnosis: V. tach, arrhythmia, elevated troponin with negative heart cath, acute kidney injury, hyperlipidemia, history of iron deficiency anemia 59-year-old male one of my office patient who is known to have history of carcinoid doses, chronic anemia, hypertension and hyperlipidemia who developed to have mild arrhythmia with PVCs and bigeminy had a Holter monitor came back slightly bit abnormal ended up going for simple echo stress test at [facility] did not show any major abnormality, patient continued to have significant arrhythmia and was referred to Dr. Lantigua cardiology where was seen has another heart monitor showed complex PVCs also ended up going for another stress test after he was on beta ronny for. This time with no major abnormality. Patient had and arrangement for waiting this last weekend for his daughter was in exhausting weekend. Patient developed for the last 48 hours severe tiredness fatigue mild lightheadedness dizziness along with presyncope like symptom with feeling of palpitation on and off ended up coming to the emergency department after he called Dr. Lantigua office today and was suggested to increase his metoprolol to 25 mg twice a day patient did not take the second dose because he was was very symptomatic was seen at [facility] and found to have wide complex ventricular tachycardia with pulse of 170-180 with the blood pressure in the 50s at the time. Cardiology were contacted patient was started on amiodar one bolus dose and drip continue to have V. tach patient ended up seen by Dr. Meredith and had IV sedation and cardioversion with 100 J achieve returning to sinus rhythm initially and then run 45 seconds V. tach and developed T waves inversion in the lateral leads. Patient troponin was mildly elevated this kidney function was slightly bit down from his baseline with decreased GFR down to 15 with magnesium of 1.7. Patient was placed on heparin drip and amiodarone and admitted to the hospital he was seen cardiology and planning to go for heart cath tomorrow. 04/25: Patient underwent heart catheterization today which revealed normal coronary arteries. Mildly elevated end-diastolic pressure. Echocardiogram reveals EF of 45-50% with mild concentric left hypertrophy, mild mitral regurgit ation, mild tricuspid regurgitation. Patient has been afebrile, heart rate 73, blood pressure 117/72, pulse ox 99% on room air. 04/27: Patient is doing slightly but better had another episode of V. tach through the night without symptoms, remain on amiodarone orally along with higher dose of beta ronny. Patient is waiting to see Dr. Kat to decide on EP. Objective - Vital Signs Vital signs: Vital Signs Temp 98.4 F 04/27/20 08:00 Pulse 72 04/27/20 08:00 Resp 16 04/27/20 08:00 BP 152/94 04/27/20 08:00 Pulse Ox 93 L 04/27/20 08:00 Intake & Output 04/26/20 04/27/20 04/27/20 18:59 06:59 18:59 Intake Total 640 240 Balance 640 240 Weight 86.1 kg Intake: IV 100 Intake, IV Titration 300 Amount Sodium Chloride 0.9% 1, 300 000 ml @ 75 mls/hr IV . [id number] JASON Rx#:[id number] Oral 240 240 Other: # Voids 5 2 - Exam REVIEW OF SYSTEMS CONSTITUTIONAL: Well-developed no acute respiratory distress. No fevers. EYES: No icterus sclerae, no conjunctivitis. EARS, NOSE, MOUTH, THROAT, and FACE: No sore throat, lymphadenopathy, carotid bruits or deformity. RESPIRATORY: No SOB cough or wheezes. CARDIOVASCULAR: Mild shortness of breath positive palpitation with PND and ort hopnea. GASTROINTESTINAL: No Abd pain, Nausea or vomiting, no Diarrhea or constipation, No GI Bleed, no distention or masses. GENITOURINARY: Negative for Hematuria or UTI, no kidney stones. INTEGUMENT/BREAST: Negative for any muscular injury with mild osteoarthritis.. HEMATOLOGIC/LYMPHATIC: Negative for bleed or purpura. MUSCULOSKELTAL: Negative for Myalgia or arthralgia. NEURLOGICAL: No LOC, Sz or syncope, blurred vision dizziness or abnormality.. BEHAVIORAL/PSYCH: Negative. ENDOCRINE: Negative. PHYSICAL EXAMINATION General Appearance: Alert, cooperative, no distress, appears stated age. Neck HEENT: Supple, no lymphadenopathy, no thyroid enlargement, no carotid bru its. Lungs: Clear to auscultation without crackles or wheezes no rhonchi, no deformity. Chest Wall: Chest wall normal expansion with deep inspiration no tenderness and no deformity was found on exam, no costochondral pain or discomfort. Heart: Regular rate and rhythm, S1, S2 normal, no murmur, rub or gallop. Back: Symmetric, no curvature, ROM normal, no CVA tenderness. Abdomen: Soft, non-tender, bowel sounds active all four quadrants, no masses, no organomegaly. Extremities: Extremities normal, atraumatic, no cyanosis or edema. Pulses: 2+ and symmetric. Skin: Skin color, texture, tugor normal, no rashes or lesions. Neurologic: Alert oriented x3 cranial nerves II through XII intact, no motor deficit, no abnormal balance or gait. - Labs CBC & Chem 7: 04/27/20 07:22 04/27/20 07:22 Labs: Abnormal Lab Results - Last 24 Hours (Table) 04/27/20 Range/Units 07:22 Sodium 135 L (137-145) mmol/L Assessment and Plan Plan: ASSESSMENT AND PLAN 1 sustained ventricular tachycardia: Post cardioversion remain on amiodarone and heparin drip at this point. Heart catheterization with normal coronary arteries. Dr. Kat consult has been added by cardiology. Has not been seen yet 2 elevated troponin with negative heart cath so far most likely troponin was from the V. tach. 3 acute kidney injury: Most likely from hypoperfusion with a ventricular tachycardia continue fluid resuscitation support the blood pressure repeat BUN/creatinine. BUN/creatinine is much better so far. 4 history of iron deficiency anemia: Has been on iron supplementation see hematology and go for iron infusion every so often. 5 hyperlipidemia: Remain on atorvastatin 40 mg daily. 6 chronic history of depression: Patient doing very well on duloxetine 60 mg daily. 7 severe ALLERGY: Remain on decongestant and Singulair on regular basis. 8 severe gastroesophageal reflux syndrome: Continue patient on pantoprazole 40 mg daily. 9 DVT prophylaxis: Patient remain on heparin drip at this point. Further planning: Patient is waiting to see Dr. Kat continue radiology support continue to adjust medication but continued to have V. tach at this point patient might need to have EP while his the hospital or might need to add more medication for better control of his V. tach till his EP is done.
[2020-04-27] MEDS ORDERED: METOPROLOL TARTRATE 50 MG TAB PO STA (12:40)
--- NOTE | 2020-04-27 14:04 | P.PN ---
Subjective HISTORY OF PRESENTING ILLNESS This is a pleasant 59-year-old male past medical history significant for hypertension, dyslipidemia and recent diagnosis of nonsustained ventricular ectopy. He follows in the office with Dr. Lantigua. He underwent cardiac catheterization revealing normal coronary arteries with no obstructive disease. Discussed with Dr. Kirby and he will come in to evaluate the patient this afternoon. He recommends discontinuation of amiodarone in case the patient is in need of ablation and he needs to induce VT in the lab. He continues to have episodes of wide complex rhythm last night he had multiple episodes where his rate remained below 100. He is asymptomatic during these times. The patient is quite anxious and afraid. We have reassured him that we're following him watching things closely. Blood pressure 154/93 heart rate 69 afebrile maintaining oxygen saturation on room air. echocardiogram obtained reveals mildly impaired LV systolic function with ejection fraction 45-50%, basal inferior and mid inferior wall motion hypokinesia noted. PHYSICAL EXAMINATION CONSTITUTIONAL: No apparent distress. HEENT: Head is normocephalic. Pupils are equal, round. Sclerae anicteric. Mucous membranes of the mouth are moist. No JVD. No carotid bruit. CHEST EXAMINATION: Lungs are clear to auscultation. No chest wall tenderness is noted on palpation or with deep breathing. HEART EXAMINATION: Regular rate and rhythm. S1, S2 heard. No murmurs, gallops or rub. EXTREMITIES: 2+ peripheral pulses, no lower extremity edema and no calf tenderness. Right radial access site clean, dry and intact with no evidence of hematoma, bruising or ecchymosis. ASSESSMENT Sustained ventricular tachycardia status post cardioversion Acute kidney injury likely from hypotension Troponin elevation Leukocytosis History of nonsustained ventricular tachycardia Hypertension Dyslipidemia PLAN Increase metoprolol to 100 mg twice a day. Await Dr. Kirby consultation this afternoon. No amiodarone at this time. Further recommendations to follow. Nurse Practitioner note has been reviewed, I agree with a documented findings and plan of care. Patient was seen and examined. Objective - Vital Signs Vital signs: Vital Signs Temp 97.3 F L 04/27/20 11:45 Pulse 69 04/27/20 11:45 Resp 16 04/27/20 11:45 BP 154/93 04/27/20 11:45 Pulse Ox 98 04/27/20 11:45 Intake & Output 1004/27/20 04/27/20 18:59 06:59 18:59 Intake Total 640 240 Balance 640 240 Weight 86.1 kg Intake: IV 100 Intake, IV Titration 300 Amount Sodium Chloride 0.9% 1, 300 000 ml @ 75 mls/hr IV . [id number] [facility] Rx#:[id number] Oral 240 240 Other: Voiding Method Toilet # Voids 5 2 2 - Labs CBC & Chem 7: 04/27/20 07:22 04/27/20 07:22 Labs: Abnormal Lab Results - Last 24 Hours (Table) 04/27/20 Range/Units 07:22 Sodium 135 L (137-145) mmol/L
[2020-04-27] MEDS: DULoxetine HCL 60 MG CAPSULE.DR PO SCH (20:22)
[2020-04-27] MEDS: MELATONIN 5 MG TABLET PO SCH (20:22)
[2020-04-27] MEDS: ATORVASTATIN 40 MG TAB PO SCH (20:22)
[2020-04-27] MEDS: PANTOPRAZOLE 40 MG TABLET PO SCH (20:23)
[2020-04-27] MEDS: MONTELUKAST 10 MG TAB PO SCH (20:23)
[2020-04-28] MEDS: SODIUM CHLORIDE 0.9% 1,000 ML IV SCH ×2 (06:07→12:25)
[2020-04-28 07:13] LABS: Basophils # (A) 0.1 k/uL (0-0.2); Basophils % (A) 1 %; Eosinophils # (A) 0.3 k/uL (0-0.7); Eosinophils % (A) 6 %; HCT 38.9 % (39.0-53.0); HGB 13.1 gm/dL (13.0-17.5); Lymphocytes % (A) 18 %; MCH 30.2 pg (25.0-35.0); MCHC 33.7 g/dL (31.0-37.0); MCV 89.7 fL (80.0-100.0); Mean Platelet Volume 7.8; Monocytes # (A) 0.6 k/uL (0-1.0); Monocytes % (A) 10 %; Neutrophils # (A) 3.6 k/uL (1.3-7.7); Neutrophils % (A) 63 %; Platelet Count 242 k/uL (150-450); RBC 4.34 m/uL (4.30-5.90); RDW 13.6 % (11.5-15.5); WBC 5.6 k/uL (3.8-10.6)
[2020-04-28 07:20] LABS: Albumin 3.5 g/dL (3.5-5.0); Calcium 8.7 mg/dL (8.4-10.2); Potassium 5.1 mmol/L (3.5-5.1); Total Bilirubin 0.6 mg/dL (0.2-1.3); Total Protein 6.2 g/dL (6.3-8.2)
[2020-04-28] MEDS: METOPROLOL TARTRATE 50 MG TAB PO SCH ×2 (08:00→20:50)
[2020-04-28] MEDS: ASPIRIN 81 MG PO SCH (08:00)
[2020-04-28 08:31] LABS: T4, Free (Free Thyroxine) 0.8 ng/dL (0.78-2.19)
--- NOTE | 2020-04-28 10:19 | P.PN ---
Subjective Progress Note Date: 04/28/20 Principal diagnosis: V. tach, arrhythmia, elevated troponin with negative heart cath, acute kidney injury, hyperlipidemia, history of iron deficiency anemia 59-year-old male one of my office patient who is known to have history of carcinoid doses, chronic anemia, hypertension and hyperlipidemia who developed to have mild arrhythmia with PVCs and bigeminy had a Holter monitor came back slightly bit abnormal ended up going for simple echo stress test at [facility] did not show any major abnormality, patient continued to have significant arrhythmia and was referred to Dr. Lantigua cardiology where was seen has another heart monitor showed complex PVCs also ended up going for another stress test after he was on beta ronny for. This time with no major abnormality. Patient had and arrangement for waiting this last weekend for his daughter was in exhausting weekend. Patient developed for the last 48 hours severe tiredness fatigue mild lightheadedness dizziness along with presyncope like symptom with feeling of palpitation on and off ended up coming to the emergency department after he called Dr. Lantigua office today and was suggested to increase his metoprolol to 25 mg twice a day patient did not take the second dose because he was was very symptomatic was seen at [facility] and found to have wide complex ventricular tachycardia with pulse of 170-180 with the blood pressure in the 50s at the time. Cardiology were contacted patient was started on amiodar one bolus dose and drip continue to have V. tach patient ended up seen by Dr. Meredith and had IV sedation and cardioversion with 100 J achieve returning to sinus rhythm initially and then run 45 seconds V. tach and developed T waves inversion in the lateral leads. Patient troponin was mildly elevated this kidney function was slightly bit down from his baseline with decreased GFR down to 15 with magnesium of 1.7. Patient was placed on heparin drip and amiodarone and admitted to the hospital he was seen cardiology and planning to go for heart cath tomorrow. 04/25: Patient underwent heart catheterization today which revealed normal coronary arteries. Mildly elevated end-diastolic pressure. Echocardiogram reveals EF of 45-50% with mild concentric left hypertrophy, mild mitral regurgit ation, mild tricuspid regurgitation. Patient has been afebrile, heart rate 73, blood pressure 117/72, pulse ox 99% on room air. 04/27: Patient is doing slightly but better had another episode of V. tach through the night without symptoms, remain on amiodarone orally along with higher dose of beta ronny. Patient is waiting to see Dr. Kat to decide on EP. 04/28: Patient continued to have slight episode of V. tach short run his off amiodarone completely but he is on 100 mg of metoprolol twice a day with his current condition is still waiting to see electrophysiology and prepare for what 's best next step if not seen on have a plan by tomorrow patient is on his 1 him transfer to one of the tertiary center. Objective - Vital Signs Vital signs: Vital Signs Temp 98.1 F 04/28/20 08:00 Pulse 62 04/28/20 08:00 Resp 16 04/28/20 08:00 BP 137/97 04/28/20 08:00 Pulse Ox 96 04/28/20 08:00 Intake & Output 04/27/20 04/28/20 04/28/20 18:59 06:59 18:59 Intake Total 222 780 236 Balance 222 780 236 Weight 86.1 kg Intake: Oral 222 780 236 Other: Voiding Method Toilet # Voids 2 2 1 - Exam REVIEW OF SYSTEMS CONSTITUTIONAL: Well-developed no acute respiratory distress. No fevers. EYES: No icterus sclerae, no conjunctivitis. EARS, NOSE, MOUTH, THROAT, and FACE: No sore throat, lymphadenopathy, carotid bruits or deformity. RESPIRATORY: No SOB cough or wheezes. CARDIOVASCULAR: Mild shortness of breath positive palpitation with PND and orthopnea. GASTROINTESTINAL: No Abd pain, Nausea or vomiting, no Diarrhea or constipation, No GI Bleed, no distention or masses. GENITOURINARY: Negative for Hematuria or UTI, no kidney stones. INTEGUMENT/BREAST: Negative for any muscular injury with mild osteoarthritis.. HEMATOLOGIC/LYMPHATIC: Negative for bleed or purpura. MUSCULOSKELTAL: Negative for Myalgia or arthralgia. NEURLOGICAL: No LOC, Sz or syncope, blurred vision dizziness or abnormality.. BEHAVIORAL/PSYCH: Negative. ENDOCRINE: Negative. PHYSICAL EXAMINATION General Appearance: Alert, cooperative, no distress, appears stated age. Neck HEENT: Supple, no lymphadenopathy, no thyroid enlargement, no carotid bruits. Lungs: Clear to auscultation without crackles or wheezes no rhonchi, no deformity. Chest Wall: Chest wall normal expansion with deep inspiration no tenderness and no deformity was found on exam, no costochondral pain or discomfort. Heart: Regular rate and rhythm, S1, S2 normal, no murmur, rub or gallop. Back: Symmetric, no curvature, ROM normal, no CVA tenderness. Abdomen: Soft, non-tender, bowel sounds active all four quadrants, no masses, no organomegaly. Extremities: Extremities normal, atraumatic, no cyanosis or edema. Pulses: 2+ and symmetric. Skin: Skin color, texture, tugor normal, no rashes or lesions. Neurologic: Alert oriented x3 cranial nerves II through XII intact, no motor deficit, no abnormal balance or gait. - Labs CBC & Chem 7: 04/28/20 06:39 04/28/20 06:39 Labs: Abnormal Lab Results - Last 24 Hours (Table) 04/28/20 04/28/20 Range/Units 06:39 06:39 Hct 38.9 L (39.0-53.0) % Sodium 135 L (137-145) mmol/L Glucose 101 H (74-99) mg/dL Total Protein 6.2 L (6.3-8.2) g/dL TSH 6.570 H (0.465-4.680) mIU/L Assessment and Plan Plan: ASSESSMENT AND PLAN 1 sustained ventricular tachycardia: Post cardioversion remain on amiodarone and heparin drip at this point. Heart catheterization with normal coronary arteries. Dr. Kat consult has been added by cardiology. Has not been seen yet still the plan to see the need to go for EP testing and ablation. 2 elevated troponin with negative heart cath so far most likely troponin was from the V. tach. 3 acute kidney injury: Most likely from hypoperfusion with a ventricular tachycardia continue fluid resuscitation support the blood pressure repeat BUN/creatinine. BUN/creatinine is much better so far. 4 history of iron deficiency anemia: Has been on iron supplementation see hematology and go for iron infusion every so often. 5 hyperlipidemia: Remain on atorvastatin 40 mg daily. 6 chronic history of depression: Patient doing very well on duloxetine 60 mg daily. 7 severe ALLERGY: Remain on decongestant and Singulair on regular basis. 8 severe gastroesophageal reflux syndrome: Continue patient on pantoprazole 40 mg daily. 9 DVT prophylaxis: Patient remain on heparin drip at this point. The patient and family still waiting see Dr. Kat to decide probably on EP testing, and possibly transfer out of town by tomorrow if there is no solid the plan made.
--- NOTE | 2020-04-28 12:17 | P.EPCON ---
Electrophysiology Consult - EP Consult Electrophysiology Consult: This is Dr. Kat dictating an EP consult on this patient The patient was interviewed and examined IMPRESSION / ASSESSMENT: ventricular tachycardia, LV VT, inferior wall focus Recurrent, sustained, drug refractory T-wave inversions in V3-V6 and inferior leads only, following cardioversion is consistent with cardiac memory Normal coronary arteries by cardiac catheterization Restless leg syndrome Obstructive sleep apnea PLAN: Had a very detailed discussion with patient regarding the mechanisms of this arrhythmia. I spoke to his daughter to about. This is left ventricular VT from the inferior wall and could be a focal VT or verapamil sustained ventricular tachycardia. He has failed metoprolol. While his options include antiplatelet drugs like flecainide and verapamil, I would recommend an EP study and ablation and reserve drug therapy for a deep intramyocardial focus, a focus very close to the electrical system that would result in heart block if ablated, or if it was deep Papillary muscle focus success rates of 90-95%, failure rate of up to or greater than 5% for deep foci, foci within the papillary muscles, or close to the left bundle. Complications of a 1% including cardiac puncture and damage to the electrical circuitry requiring permanent pacing Continue aspirin. He is on 81 mg of aspirin. Continue aspirin for a minimum of 30 days postprocedure Reduce metoprolol to 50 mg tomorrow morning and no metoprolol Wednesday evening for Wednesday Nothing by mouth after midnight for Wednesday for the procedure with anesthesia in the EP lab Limited 2-D echo tomorrow to reassess inferior wall function HPI Recurrent palpitations, brief without any other symptoms for the last several months He came to the hospital because he was feeling weak and tired and is having opticians constantly. He may have been a little lightheaded. He did not have any syncope He has known PVCs and nonsustained ventricular tachycardia. I performed a stress test on him at [facility] and he had suppression of PVCs w ith exercise He is being treated with metoprolol and the dose was recently increased He did not have any chest discomfort angina like symptoms ROS: No fever chills or rigors, no cough, phlegm or expectoration, no nausea, vomiting or diarrhea, no hematuria, dysuria, no musculoskeletal complaints, no strokes or seizures, no skin lesions. EXAMINATION: Not pressure 123/81, pulse rate in 60s afebrile Breath sounds are clear no rhonchi no crackles No JVD No lower extremity edema Normal heart sounds normal S1 normal S2 Soft abdomen REVIEW OF LABS, ECG & MEDICAL DATA Past history of hypertension dyslipidemia and PVCs EKG shows ventricular tachycardia 104 beats a minute IV amiodarone started Subsequently cardioversion with 100 J shock, synchronized, success ECG following that shows T-wave inversions V3-V6 and in the inferior leads Mildly abnormal troponin Mildly abnormal white count normal hemoglobin and normal platelet count Basal inferior LV hypokinetic mid inferior LV hypokinetic ejection fraction 45- 50% ECG during ventricular tachycardia shows right bundle branch block pattern with a transition in V3 to a QS pattern in V3-V6 as well as in the inferior leads Deep T-wave inversions V3 to V6 and later extending to the inferior leads Normal coronary arteries Labs reviewed days a 6.5, borderline troponins, normal electrolytes normal CBC
[2020-04-28] MEDS: MONTELUKAST 10 MG TAB PO SCH (20:50)
[2020-04-28] MEDS: MELATONIN 5 MG TABLET PO SCH (20:50)
[2020-04-28] MEDS: ATORVASTATIN 40 MG TAB PO SCH (20:50)
[2020-04-28] MEDS: ALPRAZolam 0.5 MG TAB PO PRN (20:50)
[2020-04-28] MEDS: PANTOPRAZOLE 40 MG TABLET PO SCH (20:50)
[2020-04-28] MEDS: DULoxetine HCL 60 MG CAPSULE.DR PO SCH (20:50)
[2020-04-29] MEDS: SODIUM CHLORIDE 0.9% 1,000 ML IV SCH (03:11)
[2020-04-29] MEDS ORDERED: METOPROLOL TARTRATE 50 MG TAB PO ONE (09:00)
[2020-04-29] MEDS: ASPIRIN 81 MG PO SCH (09:39)
--- NOTE | 2020-04-29 13:14 | ECHOF ---
Referral Reason:inferior wall function/LV mass MEASUREMENTS -------- HEIGHT: 167.6 cm WEIGHT: 85.7 kg BP: 133/79 RAP: 5.00 mmHg RVSP: 27.77 mmHg FINDINGS -------- Sinus rhythm. Limited Study Overall left ventricular systolic function is normal with, an EF between 60 - 65 %. The right ventricle is normal in size. 3 ml of Lumason was utilized for enhancement of images. Mild mitral regurgitation is present. No LV mass There is no pericardial effusion. CONCLUSIONS -------- 1. Overall left ventricular systolic function is normal with, an EF between 60 - 65 %. 2. The right ventricle is normal in size. 3. 3 ml of Lumason was utilized for enhancement of images. 4. Mild mitral regurgitation is present. 5. No LV mass 6. There is no pericardial effusion. DISK OPERATOR: Saima Churchill RDCS
--- NOTE | 2020-04-29 14:23 | P.PN ---
Subjective Progress Note Date: 04/29/20 HISTORY OF PRESENT ILLNESS 59-year-old male one of my office patient who is known to have history of carcinoid doses, chronic anemia, hypertension and hyperlipidemia who developed t o have mild arrhythmia with PVCs and bigeminy had a Holter monitor came back slightly bit abnormal ended up going for simple echo stress test at [facility] did not show any major abnormality, patient continued to have significant arrhythmia and was referred to Dr. Lantigua cardiology where was seen has another heart monitor showed complex PVCs also ended up going for another stress test after he was on beta ronny for. This time with no major abnormality. Patient had and arrangement for waiting this last weekend for his daughter was in exhausting weekend. Patient developed for the last 48 hours severe tiredness fatigue mild lightheadedness dizziness along with presyncope like symptom with f eeling of palpitation on and off ended up coming to the emergency department after he called Dr. Lantigua office today and was suggested to increase his metoprolol to 25 mg twice a day patient did not take the second dose because he was was very symptomatic was seen at [facility] and found to have wide complex ventricular tachycardia with pulse of 170-180 with the blood pressure in the 50s at the time. Cardiology were contacted patient was started on amiodarone bolus dose and drip continue to have V. tach patient ended up seen by Dr. Meredith and had IV sedation and cardioversion with 100 J achieve returning to sinus rhythm initially and then run 45 seconds V. tach and developed T waves inversion in the lateral leads. Patient troponin was mildly elevated this kidney function was slightly bit down from his baseline with decreased GFR down to 15 with magnesium of 1.7. Patient was placed on heparin drip and amiodarone and admitted to the hospital he was seen cardiology and plan yanique to go for heart cath tomorrow. 04/26: Patient underwent heart catheterization today which revealed normal coronary arteries. Mildly elevated end-diastolic pressure. Echocardiogram reveals EF of 45-50% with mild concentric left hypertrophy, mild mitral regurgitation, mild tricuspid regurgitation. Patient has been afebrile, heart rate 73, blood pressure 117/72, pulse ox 99% on room air. 04/27: Patient is doing slightly but better had another episode of V. tach through the night without symptoms, remain on amiodarone orally along with higher dose of beta ronny. Patient is waiting to see Dr. Kat to decide on EP. 04/28: Patient continued to have slight episode of V. tach short run his off amiodarone completely but he is on 100 mg of metoprolol twice a day with his current condition is still waiting to see electrophysiology and prepare for what's best next step if not seen on have a plan by tomorrow patient is on his 1 him transfer to one of the tertiary center. 04/29: Patient has been seen by Dr. Kat with plan for EP study and possible ablation tomorrow. He is currently off beta ronny. Repeat blood work reveals unremarkable CBC. Sodium 135, electrolytes renal function normal, liver function tests normal. Blood sugar 101. TSH 6.570 with a normal free T4 of 0.8. Patient denies having any palpitations, chest pain, shortness of breath, lightheadedness or dizziness. He has been afebrile, heart rate 59, blood pressure 151/87, pulse ox 98% on room air. REVIEW OF SYSTEMS CONSTITUTIONAL: Well-developed no acute respiratory distress. No fevers. No chills EYES: No icterus sclerae, no conjunctivitis. EARS, NOSE, MOUTH, THROAT, and FACE: No sore throat, lymphadenopathy, carotid bruits or deformity. RESPIRATORY: No SOB cough or wheezes. CARDIOVASCULAR: Mild shortness of breath denies palpitation. GASTROINTESTINAL: No Abd pain, Nausea or vomiting, no Diarrhea or constipation, No GI Bleed, no distention or masses. GENITOURINARY: Negative for Hematuria or UTI, no kidney stones. INTEGUMENT/BREAST: Negative for any muscular injury with mild osteoarthritis.. HEMATOLOGIC/LYMPHATIC: Negative for bleed or purpura. MUSCULOSKELTAL: Negative for Myalgia or arthralgia. NEURLOGICAL: No LOC, Sz or syncope, blurred vision dizziness or abnormality.. BEHAVIORAL/PSYCH: Negative. ENDOCRINE: Negative. PHYSICAL EXAMINATION General Appearance: Alert, cooperative, no distress, appears stated age. Patient resting in bed and appears to be comfortable. Neck HEENT: Supple, no lymphadenopathy, no thyroid enlargement, no carotid bruits. Lungs: Clear to auscultation without crackles or wheezes no rhonchi, no deformity. Chest Wall: Chest wall normal expansion with deep inspiration no tenderness and no deformity was found on exam, no costochondral pain or discomfort. Heart: Regular rate and rhythm, S1, S2 normal, no murmur, rub or gallop. Back: Symmetric, no curvature, ROM normal, no CVA tenderness. Abdomen: Soft, non-tender, bowel sounds active all four quadrants, no masses, no organomegaly. Extremities: Extremities normal, atraumatic, no cyanosis or edema. Pulses: 2+ and symmetric. Skin: Skin color, texture, tugor normal, no rashes or lesions. Neurologic: Alert oriented x3 cranial nerves II through XII intact, no motor deficit, no abnormal balance or gait. ASSESSMENT AND PLAN 1 sustained ventricular tachycardia. Lopressor has been discontinued. EP study and possible ablation tomorrow with Dr. Kat. 2 elevated troponin with possible CAD with negative stress test twice recently patient will be going for heart cath normal. 3 acute kidney injury most likely from hypoperfusion with a ventricular tachycardia, resolved. 4 history of iron deficiency anemia: Has been on iron supplementation see hematology and go for iron infusion every so often. 5 hyperlipidemia: Remain on atorvastatin 40 mg daily. 6 recurrent depression: Patient doing very well on duloxetine 60 mg daily. 7 severe ALLERGY: Remain on decongestant and Singulair on regular basis. 8 severe gastroesophageal reflux syndrome: Continue patient on pantoprazole 40 mg daily. 9 DVT prophylaxis. CODE STATUS: Full code. DISCHARGE PLAN Home Impression and plan of care have been directed as dictated by the signing physician. Julienne Arrington nurse practitioner acting as scribe for signing physician. Objective - Vital Signs Vital signs: Vital Signs Temp 98 F 04/29/20 04:00 Pulse 62 04/29/20 04:00 Resp 16 04/29/20 04:00 BP 133/79 04/29/20 04:00 Pulse Ox 95 04/29/20 04:00 Intake & Output 04/28/20 04/29/20 04/29/20 18:59 06:59 18:59 Intake Total 1436 540 Output Total 400 Balance 1436 140 Weight 86.4 kg Intake: Oral 1436 540 Output: Urine 400 Other: Voiding Method Toilet # Voids 3 3 - Labs CBC & Chem 7: 04/28/20 06:39 04/28/20 06:39
--- NOTE | 2020-04-29 15:09 | P.PN ---
Subjective Progress Note Date: 04/29/20 This is a pleasant 59-year-old male past medical history significant for hypertension, dyslipidemia and recent diagnosis of nonsustained ventricular ectopy. He follows in the office with Dr. Lantigua. He underwent cardiac catheterization revealing normal coronary arteries with no obstructive disease. Patient was also seen in consultation by Dr. Kat and is scheduled to undergo EP studies with possible ablation tomorrow. He has had no further runs of ventricular tachycardia noted on the monitor today. Blood pressure 150/80 with a heart rate in the 60s, 98% on room air. White blood cell count 5.6, hemoglobin 13.1, platelet count 242. Sodium 135, potassium 5.1, BUN 20, creatinine 1.1. Objective - Vital Signs Vital signs: Vital Signs Temp 97.7 F 04/29/20 11:38 Pulse 59 L 04/29/20 12:00 Resp 18 04/29/20 11:38 BP 151/87 04/29/20 11:38 Pulse Ox 98 04/29/20 11:38 Intake & Output 04/28/20 04/29/20 04/29/20 18:59 06:59 18:59 Intake Total 1436 540 240 Output Total 400 Balance 1436 140 240 Weight 86.4 kg Intake: Oral 1436 540 240 Output: Urine 400 Other: Voiding Method Toilet # Voids 3 3 - Exam CONSTITUTIONAL: No apparent distress. HEENT: Head is normocephalic. Pupils are equal, round. Sclerae anicteric. Mucous membranes of the mouth are moist. No JVD. No carotid bruit. CHEST EXAMINATION: Lungs are clear to auscultation. No chest wall tenderness is noted on palpation or with deep breathing. HEART EXAMINATION: Regular rate and rhythm. S1, S2 heard. No murmurs, gallops or rub. EXTREMITIES: 2+ peripheral pulses, no lower extremity edema and no calf tenderness. Right radial access site clean, dry and intact with no evidence of hematoma, bruising or ecchymosis. - Labs CBC & Chem 7: 04/28/20 06:39 04/28/20 06:39 Assessment and Plan Plan: ASSESSMENT and plan #1 Sustained ventricular tachycardia status post cardioversion #2 Acute kidney injury likely from hypotension, improving #3 History of nonsustained ventricular tachycardia #4 Hypertension #5 Dyslipidemia #6 Normal coronary arteries by cardiac catheterization Plan Patient DNP note has been reviewed, I agree with a documented findings and plan of care. Patient was seen and examined. Metoprolol has been reduced to 50 mg, and though been no metoprolol given today. will be scheduled tomorrow to undergo EP study with possible ablation by Dr. Rome shields. Further recommendations to follow
[2020-04-29] MEDS: ALPRAZolam 0.5 MG TAB PO PRN (17:41)
[2020-04-29] MEDS: TEMAZEPAM 15 MG CAP PO SCH (21:06)
[2020-04-29] MEDS: MELATONIN 5 MG TABLET PO SCH (21:06)
[2020-04-29] MEDS: MONTELUKAST 10 MG TAB PO SCH (21:06)
[2020-04-29] MEDS: lisinopriL 10 MG TAB PO SCH (21:06)
[2020-04-29] MEDS: PANTOPRAZOLE 40 MG TABLET PO SCH (21:06)
[2020-04-29] MEDS: ATORVASTATIN 40 MG TAB PO SCH (21:07)
[2020-04-29] MEDS: DULoxetine HCL 60 MG CAPSULE.DR PO SCH (21:07)
[2020-04-30] MEDS: ASPIRIN 81 MG PO SCH (06:22)
[2020-04-30] MEDS: lisinopriL 10 MG TAB PO SCH ×2 (06:22→21:38)
[2020-04-30] MEDS ORDERED: LIDOCAINE URO-JET JELLY 2% 5 ML KIT ONE (07:47)
[2020-04-30] MEDS ORDERED: MIDAZOLAM 2 MG/2 ML VIAL ONE (08:27)
[2020-04-30] MEDS ORDERED: ROCURONIUM 10 MG/ML (10 ML VIAL) IV ONE (08:27)
[2020-04-30] MEDS ORDERED: fentaNYL (PF) 50 MCG/ML 2 ML AMP ONE (08:27)
[2020-04-30] MEDS ORDERED: NEOSTIGMINE 1 MG/ML 10 ML VIAL ONE (08:27)
[2020-04-30] MEDS ORDERED: PROPOFOL 10 MG/ML 20 ML VIAL IV ONE (08:27)
[2020-04-30] MEDS ORDERED: ISOPROTERENOL 250 MCG/1.25 ML SYR IV ONE (08:27)
[2020-04-30] MEDS ORDERED: LIDOCAINE 1% INJ 10MG/ML (20 ML MDV) ONE ×2 (08:30→10:40)
[2020-04-30] MEDS ORDERED: IV FLUID CONTINUATION 1,000 ML IV ONE (08:31)
[2020-04-30] MEDS ORDERED: HEPARIN SODIUM (1,000 UNIT/ML) 1,000 UNIT in SODIUM CHLORIDE 0.9% 1,000 ML IRRIGATION ONE (08:53)
[2020-04-30] MEDS: LIDOCAINE 1% INJ 10MG/ML (20 ML MDV) SQ ONE ×2 (09:11→10:40)
--- NOTE | 2020-04-30 10:42 | P.PN ---
Progress Note - Text Progress Note Date: 04/30/20 04/30/2020 Patient down for a procedure in the EP lab today, we will continue to follow. DNP note has been reviewed, I agree with a documented findings and plan of care. Patient was seen and examined.
--- NOTE | 2020-04-30 12:25 | P.PN ---
Subjective Progress Note Date: 04/30/20 HISTORY OF PRESENT ILLNESS 59-year-old male one of my office patient who is known to have history of carcinoid doses, chronic anemia, hypertension and hyperlipidemia who developed t o have mild arrhythmia with PVCs and bigeminy had a Holter monitor came back slightly bit abnormal ended up going for simple echo stress test at [facility] did not show any major abnormality, patient continued to have significant arrhythmia and was referred to Dr. Lantigua cardiology where was seen has another heart monitor showed complex PVCs also ended up going for another stress test after he was on beta ronny for. This time with no major abnormality. Patient had and arrangement for waiting this last weekend for his daughter was in exhausting weekend. Patient developed for the last 48 hours severe tiredness fatigue mild lightheadedness dizziness along with presyncope like symptom with f eeling of palpitation on and off ended up coming to the emergency department after he called Dr. Lantigua office today and was suggested to increase his metoprolol to 25 mg twice a day patient did not take the second dose because he was was very symptomatic was seen at [facility] and found to have wide complex ventricular tachycardia with pulse of 170-180 with the blood pressure in the 50s at the time. Cardiology were contacted patient was started on amiodarone bolus dose and drip continue to have V. tach patient ended up seen by Dr. Meredith and had IV sedation and cardioversion with 100 J achieve returning to sinus rhythm initially and then run 45 seconds V. tach and developed T waves inversion in the lateral leads. Patient troponin was mildly elevated this kidney function was slightly bit down from his baseline with decreased GFR down to 15 with magnesium of 1.7. Patient was placed on heparin drip and amiodarone and admitted to the hospital he was seen cardiology and plan yanique to go for heart cath tomorrow. 04/26: Patient underwent heart catheterization today which revealed normal coronary arteries. Mildly elevated end-diastolic pressure. Echocardiogram reveals EF of 45-50% with mild concentric left hypertrophy, mild mitral regurgitation, mild tricuspid regurgitation. Patient has been afebrile, heart rate 73, blood pressure 117/72, pulse ox 99% on room air. 04/27: Patient is doing slightly but better had another episode of V. tach through the night without symptoms, remain on amiodarone orally along with higher dose of beta ronny. Patient is waiting to see Dr. Kat to decide on EP. 04/28: Patient continued to have slight episode of V. tach short run his off amiodarone completely but he is on 100 mg of metoprolol twice a day with his current condition is still waiting to see electrophysiology and prepare for what's best next step if not seen on have a plan by tomorrow patient is on his 1 him transfer to one of the tertiary center. 04/29: Patient has been seen by Dr. Kat with plan for EP study and possible ablation tomorrow. He is currently off beta ronny. Repeat blood work reveals unremarkable CBC. Sodium 135, electrolytes renal function normal, liver function tests normal. Blood sugar 101. TSH 6.570 with a normal free T4 of 0.8. Patient denies having any palpitations, chest pain, shortness of breath, lightheadedness or dizziness. He has been afebrile, heart rate 59, blood pressure 151/87, pulse ox 98% on room air. 04/30: Patient is undergoing EP study today with Dr. Kat. Patient's is at bedside. He has been afebrile, heart rate 70, blood pressure 128/70, pulse ox 97% on room air. Limited echocardiogram reveals EF of 6065%, mild mitral regurgitation REVIEW OF SYSTEMS CONSTITUTIONAL: Well-developed no acute respiratory distress. No fevers. No chills EYES: No icterus sclerae, no conjunctivitis. EARS, NOSE, MOUTH, THROAT, and FACE: No sore throat, lymphadenopathy, carotid bruits or deformity. RESPIRATORY: No SOB cough or wheezes. CARDIOVASCULAR: Mild shortness of breath denies palpitation. GASTROINTESTINAL: No Abd pain, Nausea or vomiting, no Diarrhea or constipation, No GI Bleed, no distention or masses. GENITOURINARY: Negative for Hematuria or UTI, no kidney stones. INTEGUMENT/BREAST: Negative for any muscular injury with mild osteoarthritis.. HEMATOLOGIC/LYMPHATIC: Negative for bleed or purpura. MUSCULOSKELTAL: Negative for Myalgia or arthralgia. NEURLOGICAL: No LOC, Sz or syncope, blurred vision dizziness or abnormality.. BEHAVIORAL/PSYCH: Negative. ENDOCRINE: Negative. PHYSICAL EXAMINATION General Appearance: Alert, cooperative, no distress, appears stated age. Patient resting in bed and appears to be comfortable. Neck HEENT: Supple, no lymphadenopathy, no thyroid enlargement, no carotid bruits. Lungs: Clear to auscultation without crackles or wheezes no rhonchi, no deformity. Chest Wall: Chest wall normal expansion with deep inspiration no tenderness and no deformity was found on exam, no costochondral pain or discomfort. Heart: Regular rate and rhythm, S1, S2 normal, no murmur, rub or gallop. Back: Symmetric, no curvature, ROM normal, no CVA tenderness. Abdomen: Soft, non-tender, bowel sounds active all four quadrants, no masses, no organomegaly. Extremities: Extremities normal, atraumatic, no cyanosis or edema. Pulses: 2+ and symmetric. Skin: Skin color, texture, tugor normal, no rashes or lesions. Neurologic: Alert oriented x3 cranial nerves II through XII intact, no motor deficit, no abnormal balance or gait. ASSESSMENT AND PLAN 1 sustained ventricular tachycardia. Lopressor has been discontinued. EP study and possible ablation today with Dr. Kat. 2 elevated troponin with possible CAD with negative stress test twice recently patient will be going for heart cath normal. 3 acute kidney injury most likely from hypoperfusion with a ventricular ta chycardia, resolved. 4 history of iron deficiency anemia: Has been on iron supplementation see hem atology and go for iron infusion every so often. 5 hyperlipidemia: Remain on atorvastatin 40 mg daily. 6 recurrent depression: Patient doing very well on duloxetine 60 mg daily. 7 severe ALLERGY: Remain on decongestant and Singulair on regular basis. 8 severe gastroesophageal reflux syndrome: Continue patient on pantoprazole 40 mg daily. 9 DVT prophylaxis. CODE STATUS: Full code. DISCHARGE PLAN Home Impression and plan of care have been directed as dictated by the signing physician. Julienne Arrington nurse practitioner acting as scribe for signing physician. Objective - Vital Signs Vital signs: Vital Signs Temp 97.7 F 04/29/20 20:55 Pulse 70 04/30/20 04:00 Resp 19 04/30/20 04:00 BP 128/70 04/30/20 04:00 Pulse Ox 97 04/30/20 04:00 Intake & Output 04/29/20 04/30/20 04/30/20 18:59 06:59 18:59 Intake Total 240 10 Output Total 240 Balance 240 -230 Weight 86.8 kg Intake: IV 10 Invasive Line 3 10 Oral 240 Output: Urine 240 Other: Voiding Method Toilet # Voids 1 - Labs CBC & Chem 7: 04/28/20 06:39 04/28/20 06:39
[2020-04-30] MEDS ORDERED: LACTATED RINGERS 1,000 ML IV ONE (12:30)
--- NOTE | 2020-04-30 13:12 | P.PRLE ---
RE: Israel Cadet Dear Emile Israel underwent a diagnostic EP study. He had ventricular tachycardia originating from the RV apex along the anterior inferior aspect. He underwent successful RF ablation and thereafter the tachycardia was rendered noninducible both on off Isuprel At this time I have asked him to Take aspirin 325 mg by mouth daily for one month and then stop since these ab lation was performed right at the RV apex Lisinopril 10 mg twice daily for better blood pressure control Continue rosuvastatin Stop metoprolol completely
--- NOTE | 2020-04-30 13:15 | P.EPPROC ---
- EP Procedure Note Electrophysiology Procedure Note: Procedure Ventricular tachycardia, sustained, from the RV apex, anterior wall Successful radiofrequency ablation Tachycardia rendered noninducible postop and off Isuprel Tachycardia noninducible with burst stimulation and extra stimulation after double extrastimuli No acute complications Normal pericardium at the end of the procedure Plan Aspirin 325 mg by mouth daily for one month, then stop Stop metoprolol Increase lisinopril to 10 mg twice daily Continue rosuvastatin
[2020-04-30] MEDS ORDERED: ACETAMINOPHEN TAB 325 MG TAB PO PRN (14:25)
[2020-04-30] MEDS ORDERED: HYDROcodone/APAP 5-325MG 1 EACH TAB PO PRN (14:25)
[2020-04-30] MEDS ORDERED: ACETAMINOPHEN IV (For NPO) 1,000 MG in EMPTY BAG 1 BAG IVPB ONE (14:25)
--- NOTE | 2020-04-30 14:51 | CE ---
CARDIAC ELECTROPHYSIOLOGY REPORT Israel Cadet is a 60-year-old male patient who was admitted with palpitations and was found to be in ventricular tachycardia. The 12-lead ECG from the ER suggested a right bundle branch block morphology in lead V1. However, when he was brought to the EP lab, for management of drug refractory and ventricular tachycardia, he actually had a left bundle branch block morphology. It is quite likely that the lead position was wrong in the ER. The patient was documented nonsustained ventricular tachycardia as he was brought to the EP lab and mapping was performed directly once the catheters were placed. He had a left bundle branch block morphology with a QS pattern in V1 through V6. A QS pattern is also noted in the inferior leads with positive single QRS in leads 1 and aVL. Venous sheaths were placed in the right and left femoral veins, diagnostic and mapping ablation catheter was placed. This was a long procedure because of difficulty in maintaining catheter stability, difficulty in maintaining the RV and difficulty in reaching the RV apex of the catheters. Deflectable Mobi sheath was used. Regular short sheaths were used and a 120 L long sheath was used. However, the best stability was actually obtained without any long sheath. Intracardiac echocardiography was performed. A 3D anatomic mapping of the right ventricle was performed. Following that, no change continued at that point. The papillary muscles are identified. The RV was identified. The RV inferior wall, anterior and posterior gillette were identified. Mapping ablation catheter was placed in the RV and detailed mapping was performed the RV during VT. Activation map was performed. An activation map was made and the earliest site of ventricular activation was in the RV apex anteriorly. However, this was a broad area of activation of the sites where the earliest activation was noted, signals actually quite fractionated and diminutive. However, in sinus rhythm this signals are actually quite healthy and normal. It took a considerable amount of time mapping the RV apex and obtaining stable position both for mapping and subsequently for ablation. Multiple different sheaths had to be used but finally the short sheath with the ablation catheter was the most stable. RF ablation was then applied to the site and it resulted in termination of the VT. An RF ablation was applied across the early site which is a broad area rather than a very focal spot and thereafter a full EP study was performed. Burst stimulation was performed, no VT was induced, again high-dose Isuprel was employed and burst stimulation was performed. Ventricular extra stimulation was performed after double extra stimuli. No VT was induced. Occasional PVCs and 1 very slow ventricular couplet was induced. Sinus node recovery times of 600, 500 and 400 millisecond were 1012, 1093 and 1186 milliseconds. AV node Wenckebach block 460 milliseconds. The SD interval at the start of the study was mildly prolonged at 11 milliseconds. AH interval 119 milliseconds, HV interval 76 milliseconds, QRS 97 milliseconds and the QT interval is 378 millisecond. Patient was brought despite fairly aggressive ventricular stimulation protocol, VT could not be induced and all catheters were removed at the end of the procedure, intracardiac echo confirmed the absence of any pericardial effusion. IMPRESSION: Full RV apical VT from the anterior apical wall. The right ventricular size appeared normal. This was a long procedure on account of catheter instability and difficulty in mapping within the right ventricle in the RV apex requiring multiple sheaths. The total duration was greater than 5 hours. The patient tolerated the procedure well without any acute complications. PLAN: In the future, cardiac MRI will be performed to look for arrhythmogenic cardiomyopathy. ORAL / CARLENEN: [id number] /
[2020-04-30] MEDS: SODIUM CHLORIDE 0.9% 1,000 ML IV SCH (17:24)
[2020-04-30] MEDS: ASPIRIN 325 MG TAB PO SCH (17:38)
[2020-04-30] MEDS: TEMAZEPAM 15 MG CAP PO SCH (21:38)
[2020-04-30] MEDS: MONTELUKAST 10 MG TAB PO SCH (21:38)
[2020-04-30] MEDS: DULoxetine HCL 60 MG CAPSULE.DR PO SCH (21:38)
[2020-04-30] MEDS: PANTOPRAZOLE 40 MG TABLET PO SCH (21:38)
[2020-04-30] MEDS: ALPRAZolam 0.5 MG TAB PO PRN (21:38)
[2020-04-30] MEDS: MELATONIN 5 MG TABLET PO SCH (21:38)
[2020-04-30] MEDS: ATORVASTATIN 40 MG TAB PO SCH (21:39)
[2020-05-01] MEDS: ASPIRIN 325 MG TAB PO SCH (08:16)
[2020-05-01] MEDS: lisinopriL 10 MG TAB PO SCH (08:16)
[2020-05-01 08:54] LABS: Basophils # (A) 0.1 k/uL (0-0.2); Basophils % (A) 1 %; Eosinophils # (A) 0.4 k/uL (0-0.7); Eosinophils % (A) 5 %; HCT 41.2 % (39.0-53.0); HGB 13.8 gm/dL (13.0-17.5); Lymphocytes # (A) 0.9 k/uL (1.0-4.8); Lymphocytes % (A) 12 %; MCH 29.8 pg (25.0-35.0); MCHC 33.3 g/dL (31.0-37.0); MCV 89.3 fL (80.0-100.0); Mean Platelet Volume 7.3; Monocytes # (A) 0.5 k/uL (0-1.0); Monocytes % (A) 7 %; Neutrophils # (A) 5.1 k/uL (1.3-7.7); Neutrophils % (A) 73 %; Platelet Count 291 k/uL (150-450); RBC 4.62 m/uL (4.30-5.90); RDW 14.1 % (11.5-15.5); WBC 6.9 k/uL (3.8-10.6)
[2020-05-01 08:59] LABS: Calcium 9.1 mg/dL (8.4-10.2); Potassium 4.4 mmol/L (3.5-5.1)
[2020-05-01] MEDS ORDERED: ASPIRIN 325 MG TAB PO SCH (09:00)
--- NOTE | 2020-05-01 09:13 | P.DS ---
Providers Date of admission: 04/25/20 14:22 Expected date of discharge: 05/02/20 Attending physician: Zafar Rizvi Consults: 04/25/20 14:22 Consult Physician Urgent Consulting Provider: [facility] Consult Reason/Comments: Ventricular tachycardia Do you want consulting provider notified?: Yes 04/27/20 18:00 Consult Physician Urgent Consulting Provider: Ed Kat Consult Reason/Comments: ventricular tachycardia Do you want consulting provider notified?: Yes Primary care physician: [facility] Course: HISTORY OF PRESENT ILLNESS 59-year-old male one of my office patient who is known to have history of carcinoid doses, chronic anemia, hypertension and hyperlipidemia who developed to have mild arrhythmia with PVCs and bigeminy had a Holter monitor came back slightly bit abnormal ended up going for simple echo stress test at [facility] did not show any major abnormality, patient continued to have significant arrhythmia and was referred to Dr. Lantigua cardiology where was seen has another heart monitor showed complex PVCs also ended up going for another stress test after he was on beta ronny for. This time with no major abnormality. Patient had and arrangement for waiting this last weekend for his daughter was in exhausting weekend. Patient developed for the last 48 hours severe tiredness fatigue mild lightheadedness dizziness along with presyncope like symptom with feeling of palpitation on and off ended up coming to the emergency department after he called Dr. Lantigua office today and was suggested to increase his metoprolol to 25 mg twice a day patient did not take the second dose because he was was very symptomatic was seen at [facility] and found to have wide complex ventricular tachycardia with pulse of 170-180 with the blood pressure in the 50s at the time. Cardiology were contacted patient was started on amiodarone bolus dose and drip continue to have V. tach patient ended up seen by Dr. Meredith and had IV sedation and cardioversion with 100 J achieve returning to sinus rhythm initially and then run 45 seconds V. tach and developed T waves inversion in the lateral leads. Patient troponin was mildly elevated this kidney function was slightly bit down from his baseline with decreased GFR down to 15 with magnesium of 1.7. Patient was placed on heparin drip and amiodarone and admitted to the hospital he was seen cardiology and planning to go for heart cath tomorrow. 04/26: Patient underwent heart catheterization today which revealed normal coronary arteries. Mildly elevated end-diastolic pressure. Echocardiogram reveals EF of 45-50% with mild concentric left hypertrophy, mild mitral regurgitation, mild tricuspid regurgitation. Patient has been afebrile, heart rate 73, blood pressure 117/72, pulse ox 99% on room air. 04/27: Patient is doing slightly but better had another episode of V. tach through the night without symptoms, remain on amiodarone orally along with higher dose of beta ronny. Patient is waiting to see Dr. Kat to decide on EP. 04/28: Patient continued to have slight episode of V. tach short run his off amiodarone completely but he is on 100 mg of metoprolol twice a day with his current condition is still waiting to see electrophysiology and prepare for what's best next step if not seen on have a plan by tomorrow patient is on his 1 him transfer to one of the tertiary center. 04/29: Patient has been seen by Dr. Kat with plan for EP study and possible ablation tomorrow. He is currently off beta ronny. Repeat blood work reveals unremarkable CBC. Sodium 135, electrolytes renal function normal, liver function tests normal. Blood sugar 101. TSH 6.570 with a normal free T4 of 0.8. Patient denies having any palpitations, chest pain, shortness of breath, lightheadedness or dizziness. He has been afebrile, heart rate 59, blood pressure 151/87, pulse ox 98% on room air. 04/30: Patient is undergoing EP study today with Dr. Kat. Patient's is at bedside. He has been afebrile, heart rate 70, blood pressure 128/70, pulse ox 97% on room air. Limited echocardiogram reveals EF of 6065%, mild mitral re gurgitation 05/02: Patient denies any problems overnight. Blood pressure remains high for which lisinopril was increased yesterday to 20 mg twice daily and he will be provided a prescription for hydralazine to be used as needed. Patient has been cleared by cardiology and he will be discharged home today in stable condition ASSESSMENT AND PLAN 1 sustained ventricular tachycardia. 2 elevated troponin with possible CAD ruled out with heart cath normal. 3 acute kidney injury most likely from hypoperfusion with a ventricular tachycardia, resolved. 4 history of iron deficiency anemia 5 hyperlipidemia 6 recurrent depression: 7 severe ALLERGY 8 severe gastroesophageal reflux syndrome DISCHARGE PLAN Home Impression and plan of care have been directed as dictated by the signing physician. Julienne Arrington nurse practitioner acting as scribe for signing physician. Patient Condition at Discharge: Good Plan - Discharge Summary Discharge Rx Participant: Yes New Discharge Prescriptions: New Aspirin EC [Ecotrin] 325 mg PO DAILY #90 tablet. Pantoprazole Sodium [Protonix] 40 mg PO DAILY #30 tablet. hydrALAZINE HCL [Apresoline] 25 mg PO QID PRN #20 tab PRN Reason: Hypertension lisinopriL [Zestril] 20 mg PO BID #60 tab Continue Omeprazole [PriLOSEC] 20 mg PO HS DULoxetine HCL [Cymbalta] 60 mg PO HS Ascorbic Acid [Vitamin C] 500 mg PO DAILY Multivitamin [Men's Multi-Vitamin] 1 tab PO DAILY Melatonin 5 mg PO HS Cholecalciferol (Vitamin D3) [Vitamin D3] 2,000 unit PO DAILY Montelukast [Singulair] 10 mg PO HS EPINEPHrine (Auto Inject) [Epipen] 0.3 mg IM ONCE PRN PRN Reason: Anaphylaxis Rosuvastatin [Crestor] 10 mg PO HS Discontinued lisinopriL [Zestril] 10 mg PO HS Metoprolol Tartrate [Lopressor] 25 mg PO DAILY Metoprolol Tartrate [Lopressor] 12.5 mg PO HS Discharge Medication List DULoxetine HCL [Cymbalta] 60 mg PO HS 02/15/14 [History] Omeprazole [PriLOSEC] 20 mg PO HS 02/15/14 [History] Ascorbic Acid [Vitamin C] 500 mg PO DAILY 05/12/18 [History] Cholecalciferol (Vitamin D3) [Vitamin D3] 2,000 unit PO DAILY 05/12/18 [History] Melatonin 5 mg PO HS 05/12/18 [History] Multivitamin [Men's Multi-Vitamin] 1 tab PO DAILY 05/12/18 [History] EPINEPHrine (Auto Inject) [Epipen] 0.3 mg IM ONCE PRN 04/25/20 [History] Montelukast [Singulair] 10 mg PO HS 04/25/20 [History] Rosuvastatin [Crestor] 10 mg PO HS 04/25/20 [History] Aspirin EC [Ecotrin] 325 mg PO DAILY #90 tablet. 04/30/20 [Rx] Pantoprazole Sodium [Protonix] 40 mg PO DAILY #30 tablet. 05/01/20 [Rx] hydrALAZINE HCL [Apresoline] 25 mg PO QID PRN #20 tab 05/01/20 [Rx] lisinopriL [Zestril] 20 mg PO BID #60 tab 05/02/20 [Rx] Follow up Appointment(s)/Referral(s): Tim Lantigua MD [STAFF PHYSICIAN] - 05/09/20 9:30 am () Zafar Rizvi MD [Primary Care Provider] - 05/07/20 11:30 am (Wednesday with [facility]) Patient Instructions/Handouts: *[facility]gery [facility] - After Heart Catheterization - It Project Manager Instructions, Cardiac Ablation (DC) Activity/Diet/Wound Care/Special Instructions: Post EP study - Ablation instructions 1. Keep access sites dry for 2 days. 2. No heavy lifting or straining for 2 days. 3. Avoid bending the hips repeatedly for 2 days. 4. You may go up and down stairs slowly Call if the following is noted 1. Bleeding, increasing swelling or pain at the access sites. 2. Increasing chest discomfort, especially upon taking a deep breath. 3. Increasing shortness of breath, at rest or with exertion. 4. Undue cough / phlegm 5. Difficulty or pain while swallowing. 6. Pain or change in color in the extremities. 7. Fever, chills, rigors. 8. Increasing headache or neurologic symptoms. 9. Dizziness, fainting, palpitations Aspirin 325 mg by mouth daily for one month then stop Increase lisinopril to 10 mg twice daily Continue rosuvastatin No metoprolol Discharge Disposition: HOME SELF-CARE
--- NOTE | 2020-05-01 09:52 | P.PN ---
Subjective Progress Note Date: 05/01/20 This is a pleasant 59-year-old male past medical history significant for hypertension, dyslipidemia and recent diagnosis of nonsustained ventricular ectopy. He follows in the office with Dr. Lantigua. He underwent cardiac catheterization revealing normal coronary arteries with no obstructive disease. Patient was also seen in consultation by Dr. Kat and is scheduled to undergo EP studies with possible ablation tomorrow. He has had no further runs of ventricular tachycardia noted on the monitor today. Blood pressure 150/80 with a heart rate in the 60s, 98% on room air. White blood cell count 5.6, hemoglobin 13.1, platelet count 242. Sodium 135, potassium 5.1, BUN 20, creatinine 1.1. 05/01/2020 Patient was seen and examined this morning, underwent successful radiofrequency ablation of a RV apex ventricular tachycardia by Dr. Kat yesterday. The patient feels well, blood pressure 148/70, 180/90, heart rate in the 80s.he is currently on a full aspirin which Dr. Kat wants to continue for a one month's duration. His beta ronny has been discontinued.he is on Zestril 10 mg one tablet by mouth twice a day. Laboratory data from today was reviewed, white blood cell count 6.9, hemoglobin 13.8, platelet count 291. Sodium 137, potassium 4.4, BUN 18, creatinine 1.1. Objective - Vital Signs Vital signs: Vital Signs Temp 97.2 F L 05/01/20 08:42 Pulse 96 05/01/20 08:42 Resp 18 05/01/20 08:42 BP 181/95 05/01/20 08:42 Pulse Ox 95 05/01/20 04:00 Intake & Output 04/30/20 05/01/20 05/01/20 18:59 06:59 18:59 Intake Total 2078 375 Output Total 1075 3300 Balance 1004 -2925 Weight 85.4 kg Intake: IV 2078 Intake, IV Titration 375 Amount Lactated Ringers 1,000 ml 375 @ 0 mls/hr IV .[employer] [facility] Rx#:[id number] Output: Urine 1075 3300 Uretheral (Myers) 2200 Other: Voiding Method Toilet Toilet # Voids 1 - Exam CONSTITUTIONAL: No apparent distress. HEENT: Head is normocephalic. Pupils are equal, round. Sclerae anicteric. Mucous membranes of the mouth are moist. No JVD. No carotid bruit. CHEST EXAMINATION: Lungs are clear to auscultation. No chest wall tenderness is noted on palpation or with deep breathing. HEART EXAMINATION: Regular rate and rhythm. S1, S2 heard. No murmurs, gallops or rub. EXTREMITIES: 2+ peripheral pulses, no lower extremity edema and no calf tenderness. Right radial access site clean, dry and intact with no evidence of hematoma, bruising or ecchymosis. - Labs CBC & Chem 7: 05/01/20 08:26 05/01/20 08:26 Labs: Abnormal Lab Results - Last 24 Hours (Table) 05/01/20 05/01/20 Range/Units 08:26 08:26 Lymphocytes # 0.9 L (1.0-4.8) k/uL Glucose 116 H (74-99) mg/dL Assessment and Plan Plan: ASSESSMENT and plan #1 Sustained ventricular tachycardia status post cardioversion, and status post successful radiofrequency ablation for ventricular tachycardia from the RV apex #2 Acute kidney injury likely from hypotension, improving #3 History of nonsustained ventricular tachycardia #4 Hypertension #5 Dyslipidemia #6 Normal coronary arteries by cardiac catheterization Plan Patient's beta ronny has been discontinued, he is currently on a full aspirin daily which Dr. Kat wants to continue for one month. CBC normal, lytes BUN and creatinine normal. Dr. Turner Lantigua wishes to keep the patient until tomorrow morning, and discharged home at that time if stable. DNP note has been reviewed, I agree with a documented findings and plan of care. Patient was seen and examined.
[2020-05-01] MEDS ORDERED: lisinopriL 10 MG TAB PO STA (11:03)
--- NOTE | 2020-05-01 11:06 | P.PN ---
Subjective Progress Note Date: 05/01/20 HISTORY OF PRESENT ILLNESS 59-year-old male one of my office patient who is known to have history of carcinoid doses, chronic anemia, hypertension and hyperlipidemia who developed t o have mild arrhythmia with PVCs and bigeminy had a Holter monitor came back slightly bit abnormal ended up going for simple echo stress test at [facility] did not show any major abnormality, patient continued to have significant arrhythmia and was referred to Dr. Lantigua cardiology where was seen has another heart monitor showed complex PVCs also ended up going for another stress test after he was on beta ronny for. This time with no major abnormality. Patient had and arrangement for waiting this last weekend for his daughter was in exhausting weekend. Patient developed for the last 48 hours severe tiredness fatigue mild lightheadedness dizziness along with presyncope like symptom with f eeling of palpitation on and off ended up coming to the emergency department after he called Dr. Lantigua office today and was suggested to increase his metoprolol to 25 mg twice a day patient did not take the second dose because he was was very symptomatic was seen at [facility] and found to have wide complex ventricular tachycardia with pulse of 170-180 with the blood pressure in the 50s at the time. Cardiology were contacted patient was started on amiodarone bolus dose and drip continue to have V. tach patient ended up seen by Dr. Meredith and had IV sedation and cardioversion with 100 J achieve returning to sinus rhythm initially and then run 45 seconds V. tach and developed T waves inversion in the lateral leads. Patient troponin was mildly elevated this kidney function was slightly bit down from his baseline with decreased GFR down to 15 with magnesium of 1.7. Patient was placed on heparin drip and amiodarone and admitted to the hospital he was seen cardiology and plan yanique to go for heart cath tomorrow. 04/26: Patient underwent heart catheterization today which revealed normal coronary arteries. Mildly elevated end-diastolic pressure. Echocardiogram reveals EF of 45-50% with mild concentric left hypertrophy, mild mitral regurgitation, mild tricuspid regurgitation. Patient has been afebrile, heart rate 73, blood pressure 117/72, pulse ox 99% on room air. 04/27: Patient is doing slightly but better had another episode of V. tach through the night without symptoms, remain on amiodarone orally along with higher dose of beta ronny. Patient is waiting to see Dr. Kat to decide on EP. 04/28: Patient continued to have slight episode of V. tach short run his off amiodarone completely but he is on 100 mg of metoprolol twice a day with his current condition is still waiting to see electrophysiology and prepare for what's best next step if not seen on have a plan by tomorrow patient is on his 1 him transfer to one of the tertiary center. 04/29: Patient has been seen by Dr. Kat with plan for EP study and possible ablation tomorrow. He is currently off beta ronny. Repeat blood work reveals unremarkable CBC. Sodium 135, electrolytes renal function normal, liver function tests normal. Blood sugar 101. TSH 6.570 with a normal free T4 of 0.8. Patient denies having any palpitations, chest pain, shortness of breath, lightheadedness or dizziness. He has been afebrile, heart rate 59, blood pressure 151/87, pulse ox 98% on room air. 04/30: Patient is undergoing EP study today with Dr. Kat. Patient's is at bedside. He has been afebrile, heart rate 70, blood pressure 128/70, pulse ox 97% on room air. Limited echocardiogram reveals EF of 6065%, mild mitral regurgitation 05/01: Yesterday, patient underwent EP study and successful radiofrequency ablation for ventricular tachycardia sustained from the RV apex anterior wall. The patient denies any complaints today. He has been recommended by Dr. Kat to continue full strength aspirin for 30 days. Patient has been afebrile, heart rate 85, blood pressure 181/95, pulse ox 95% on room air. We will increase lisinopril to 20 mg twice daily. Repeat CBC is unremarkable as well as BMP. Cardiology would like to monitor the patient overnight and plan for discharge home tomorrow. REVIEW OF SYSTEMS CONSTITUTIONAL: Well-developed no acute respiratory distress. No fevers. No chills EYES: No icterus sclerae, no conjunctivitis. EARS, NOSE, MOUTH, THROAT, and FACE: No sore throat, lymphadenopathy, carotid bruits or deformity. RESPIRATORY: No SOB cough or wheezes. CARDIOVASCULAR: Denies shortness of breath denies palpitation. GASTROINTESTINAL: No Abd pain, Nausea or vomiting, no Diarrhea or constipation, No GI Bleed, no distention or masses. GENITOURINARY: Negative for Hematuria or UTI, no kidney stones. INTEGUMENT/BREAST: Negative for any muscular injury with mild osteoarthritis.. HEMATOLOGIC/LYMPHATIC: Negative for bleed or purpura. MUSCULOSKELTAL: Negative for Myalgia or arthralgia. NEURLOGICAL: No LOC, Sz or syncope, blurred vision dizziness or abnormality.. BEHAVIORAL/PSYCH: Negative. ENDOCRINE: Negative. PHYSICAL EXAMINATION General Appearance: Alert, cooperative, no distress, appears stated age. Patient resting in bed and appears to be comfortable. Patient's is at be dside. Neck HEENT: Supple, no lymphadenopathy, no thyroid enlargement, no carotid bruits. Lungs: Clear to auscultation without crackles or wheezes no rhonchi, no deformity. Chest Wall: Chest wall normal expansion with deep inspiration no tenderness and no deformity was found on exam, no costochondral pain or discomfort. Heart: Regular rate and rhythm, S1, S2 normal, no murmur, rub or gallop. Back: Symmetric, no curvature, ROM normal. Abdomen: Soft, non-tender, bowel sounds active all four quadrants, no masses, no organomegaly. Extremities: Extremities normal, atraumatic, no cyanosis or edema. Pulses: 2+ and symmetric. Skin: Skin color, texture, tugor normal, no rashes or lesions. Neurologic: Alert oriented x3 cranial nerves II through XII intact, no motor deficit, no abnormal balance or gait. ASSESSMENT AND PLAN 1 sustained ventricular tachycardia status post EP study and successful radiofrequency ablation. Lopressor has been discontinued. Aspirin 325 mg daily 30 days. 2 elevated troponin without CAD. 3 acute kidney injury most likely from hypoperfusion with a ventricular tachycardia, resolved. 4 history of iron deficiency anemia: Has been on iron supplementation see hematology and go for iron infusion every so often. 5 hyperlipidemia: Remain on atorvastatin 40 mg daily. 6 recurrent depression: Patient doing very well on duloxetine 60 mg daily. 7 severe ALLERGY: Remain on decongestant and Singulair on regular basis. 8 severe gastroesophageal reflux syndrome: Continue patient on pantoprazole 40 mg daily. 9 DVT prophylaxis. CODE STATUS: Full code. DISCHARGE PLAN Home on Impression and plan of care have been directed as dictated by the signing physician. Julienne Arrington nurse practitioner acting as scribe for signing physician. Objective - Vital Signs Vital signs: Vital Signs Temp 97.2 F L 05/01/20 08:42 Pulse 96 05/01/20 08:42 Resp 18 05/01/20 08:42 BP 181/95 05/01/20 08:42 Pulse Ox 95 05/01/20 04:00 Intake & Output 04/30/20 05/01/20 05/01/20 18:59 06:59 18:59 Intake Total 2078 375 Output Total 1075 3300 Balance 1004 -2925 Weight 85.4 kg Intake: IV 2078 Intake, IV Titration 375 Amount Lactated Ringers 1,000 ml 375 @ 0 mls/hr IV .[facility] Rx#:[id number] Output: Urine 1075 3300 Uretheral (Myers) 2200 Other: Voiding Method Toilet Toilet # Voids 1 - Labs CBC & Chem 7: 05/01/20 08:26 05/01/20 08:26 Labs: Abnormal Lab Results - Last 24 Hours (Table) 05/01/20 05/01/20 Range/Units 08:26 08:26 Lymphocytes # 0.9 L (1.0-4.8) k/uL Glucose 116 H (74-99) mg/dL
[2020-05-01] MEDS: SODIUM CHLORIDE 0.9% 1,000 ML IV SCH (11:46)
[2020-05-01 12:39] VITALS: BMI 30.4
[2020-05-01] MEDS: ATORVASTATIN 40 MG TAB PO SCH (20:06)
[2020-05-01] MEDS: DULoxetine HCL 60 MG CAPSULE.DR PO SCH (20:06)
[2020-05-01] MEDS: ALPRAZolam 0.5 MG TAB PO PRN (20:06)
[2020-05-01] MEDS: lisinopriL 20 MG TAB PO SCH (20:07)
[2020-05-01] MEDS: TEMAZEPAM 15 MG CAP PO SCH (20:07)
[2020-05-01] MEDS: MELATONIN 5 MG TABLET PO SCH (20:07)
[2020-05-01] MEDS: MONTELUKAST 10 MG TAB PO SCH (20:07)
[2020-05-01] MEDS: PANTOPRAZOLE 40 MG TABLET PO SCH (20:07)
[2020-05-02 05:29] VITALS: RESP 16
[2020-05-02] MEDS: ASPIRIN 325 MG TAB PO SCH (08:33)
[2020-05-02] MEDS: lisinopriL 20 MG TAB PO SCH (08:33)
[2020-05-02 08:37] VITALS: BP 159/96; PULSE 91; TEMP 96.4
[2020-05-02] MEDS ORDERED: hydrALAZINE HCL 25 MG TAB PO PRN (09:29)
--- NOTE | 2020-05-02 11:00 | P.PN ---
Subjective Progress Note Date: 05/02/20 This is a pleasant 59-year-old male past medical history significant for hypertension, dyslipidemia and recent diagnosis of nonsustained ventricular ectopy. He follows in the office with Dr. Lantigua. He underwent cardiac catheterization revealing normal coronary arteries with no obstructive disease. Patient was also seen in consultation by Dr. Kat and is scheduled to undergo EP studies with possible ablation tomorrow. He has had no further runs of ventricular tachycardia noted on the monitor today. Blood pressure 150/80 with a heart rate in the 60s, 98% on room air. White blood cell count 5.6, hemoglobin 13.1, platelet count 242. Sodium 135, potassium 5.1, BUN 20, creatinine 1.1. 05/01/2020 Patient was seen and examined this morning, underwent successful radiofrequency ablation of a RV apex ventricular tachycardia by Dr. Kat yesterday. The patient feels well, blood pressure 148/70, 180/90, heart rate in the 80s.he is currently on a full aspirin which Dr. Kat wants to continue for a one month's duration. His beta ronny has been discontinued.he is on Zestril 10 mg one tablet by mouth twice a day. Laboratory data from today was reviewed, white blood cell count 6.9, hemoglobin 13.8, platelet count 291. Sodium 137, potassium 4.4, BUN 18, creatinine 1.1. 05/02/2020 Patient was seen and examined this morning, no arrhythmias documented through the night last night. Patient feels well, denies any palpitations, no shortness of breath or chest discomfort. Blood pressure this morning 160/80, heart rate in the 90s, 96% on room air. White blood cell count 6.9, hemoglobin 13.8, platelet count 291. Sodium 137, potassium 4.4, BUN 18, creatinine 1.1. Objective - Vital Signs Vital signs: Vital Signs Temp 96.4 F L 05/02/20 08:00 Pulse 91 05/02/20 08:00 Resp 16 05/02/20 08:00 BP 159/96 05/02/20 08:00 Pulse Ox 96 05/02/20 04:00 Intake & Output 05/01/20 05/02/20 05/02/20 18:59 06:59 18:59 Intake Total 458 220 Balance 458 220 Weight 85.4 kg Intake: Oral 458 220 Other: Voiding Method Toilet Toilet # Voids 3 2 - Exam CONSTITUTIONAL: No apparent distress. HEENT: Head is normocephalic. Pupils are equal, round. Sclerae anicteric. Mucous membranes of the mouth are moist. No JVD. No carotid bruit. CHEST EXAMINATION: Lungs are clear to auscultation. No chest wall tenderness is noted on palpation or with deep breathing. HEART EXAMINATION: Regular rate and rhythm. S1, S2 heard. No murmurs, gallops or rub. EXTREMITIES: 2+ peripheral pulses, no lower extremity edema and no calf tenderness. Right radial access site clean, dry and intact with no evidence of hematoma, bruising or ecchymosis. - Labs CBC & Chem 7: 05/01/20 08:26 05/01/20 08:26 Assessment and Plan Plan: ASSESSMENT and plan #1 Sustained ventricular tachycardia status post cardioversion, and status post successful radiofrequency ablation for ventricular tachycardia from the RV apex #2 Acute kidney injury likely from hypotension, improving #3 History of nonsustained ventricular tachycardia #4 Hypertension #5 Dyslipidemia #6 Normal coronary arteries by cardiac catheterization Plan From cardiology's perspective, patient may be able to be discharged home today. A follow-up appointment will be made with Dr. Turner Lantigua in the office on the of this month at 10:30 AM. As an outpatient, Dr. Turner Lantigua will arrange for the patient also have a cardiac MR, because of the location of his VT. This was all explained to the patient and his in detail. DNP note has been reviewed, I agree with a documented findings and plan of care. Patient was seen and examined.
== END 2020-05-02 10:13 | disposition home or self-care (01) | DRG 274 ==
LOC: EC 12:48 → 3SCARD 14:22
PROVIDERS: ADMIT Internal Medicine Geriatric Medicine; ATTEND Internal Medicine Geriatric Medicine
PROC: 5A2204Z Restoration of Cardiac Rhythm, Single (ICD-10-PCS; 2020-04-25)
PROC: 4A023N7 Measurement of Cardiac Sampling and Pressure, Left Heart, Percutaneous Approach (ICD-10-PCS; 2020-04-26)
PROC: B2111ZZ Fluoroscopy of Multiple Coronary Arteries using Low Osmolar Contrast (ICD-10-PCS; 2020-04-26)
PROC: 5A2204Z Restoration of Cardiac Rhythm, Single (ICD-10-PCS; 2020-04-28)
PROC: 02K83ZZ Map Conduction Mechanism, Percutaneous Approach (ICD-10-PCS; principal; 2020-04-30 08:30)
PROC: 02583ZZ Destruction of Conduction Mechanism, Percutaneous Approach (ICD-10-PCS; principal; 2020-04-30 08:30)
PROC: B244ZZ4 Ultrasonography of Right Heart, Transesophageal (ICD-10-PCS; principal; 2020-04-30 08:30)
DX: I47.2 Ventricular tachycardia (principal); F33.9 Major depressive disorder, recurrent, unspecified; N17.9 Acute kidney failure, unspecified; I11.9 Hypertensive heart disease without heart failure; I95.9 Hypotension, unspecified; D72.829 Elevated white blood cell count, unspecified; I44.7 Left bundle-branch block, unspecified; I49.3 Ventricular premature depolarization; G25.81 Restless legs syndrome; G47.33 Obstructive sleep apnea (adult) (pediatric); I08.1 Rheumatic disorders of both mitral and tricuspid valves; E78.5 Hyperlipidemia, unspecified; K21.9 Gastro-esophageal reflux disease without esophagitis; D50.9 Iron deficiency anemia, unspecified; F41.9 Anxiety disorder, unspecified; R79.89 Other specified abnormal findings of blood chemistry; Z79.899 Other long term (current) drug therapy; Z85.828 Personal history of other malignant neoplasm of skin; Z80.0 Family history of malignant neoplasm of digestive organs; Z87.19 Personal history of other diseases of the digestive system; Z98.890 Other specified postprocedural states; Z88.8 Allergy status to other drugs, medicaments and biological substances; Z91.030 Bee allergy status
CPT/HCPCS: 36415; 71045; 80048; 80053; 80061; 83735; 84439; 84443; 84484; 85025; 85610; 85730; 92960; 93005; 93306; 93308; 93458; 93623; 93654; 93662; 96361; 96365; 96366; 96374; 96375; 99291

== ENCOUNTER 2020-08-22 10:56 | Day surgery (SDC) | payer BC ==
[2020-08-21 08:06] VITALS: BMI 29.5
[2020-08-22 11:46] LABS: Basophils # (A) 0.1 k/uL (0-0.2); Basophils % (A) 1 %; Eosinophils # (A) 0.4 k/uL (0-0.7); Eosinophils % (A) 6 %; HCT 37.1 % (39.0-53.0); HGB 12.2 gm/dL (13.0-17.5); Hypochromasia Slight; Lymphocytes # (A) 1.7 k/uL (1.0-4.8); Lymphocytes % (A) 22 %; MCH 26.6 pg (25.0-35.0); MCHC 32.8 g/dL (31.0-37.0); Mean Platelet Volume 7.2; Monocytes # (A) 0.8 k/uL (0-1.0); Monocytes % (A) 10 %; Neutrophils # (A) 4.5 k/uL (1.3-7.7); Neutrophils % (A) 58 %; Platelet Count 437 k/uL (150-450); Poikilocytosis Slight; RBC 4.58 m/uL (4.30-5.90); RDW 13.3 % (11.5-15.5); WBC 7.7 k/uL (3.8-10.6)
[2020-08-22 12:08] LABS: Potassium 4.4 mmol/L (3.5-5.1)
[2020-08-22] MEDS ORDERED: ISOPROTERENOL 250 MCG/1.25 ML SYR IV ONE (12:33)
[2020-08-22] MEDS ORDERED: MIDAZOLAM 2 MG/2 ML VIAL ONE (12:33)
[2020-08-22] MEDS ORDERED: fentaNYL (PF) 50 MCG/ML 2 ML AMP ONE (12:33)
[2020-08-22] MEDS ORDERED: HEPARIN SODIUM (1,000 UNIT/ML) 1,000 UNIT in SODIUM CHLORIDE 0.9% 1,000 ML IRRIGATION ONE (12:33)
[2020-08-22] MEDS ORDERED: IV FLUID CONTINUATION 900 ML IV ONE (12:33)
[2020-08-22] MEDS ORDERED: LIDOCAINE 1% INJ 10MG/ML (20 ML MDV) ONE ×2 (12:44→13:35)
[2020-08-22] MEDS ORDERED: LIDOCAINE 1% INJ 10MG/ML (20 ML MDV) SQ ONE ×3 (13:04→13:36)
[2020-08-22] MEDS ORDERED: ACETAMINOPHEN TAB 325 MG TAB PO PRN (16:39)
[2020-08-22] MEDS ORDERED: HYDROcodone/APAP 5-325MG 1 EACH TAB PO PRN (16:39)
--- NOTE | 2020-08-22 17:06 | P.PRLE ---
RE: Israel Cadet Dear Emile Israel Cadet had exercise-induced VT after successful ablation of an apical RV VT His cardiac MRI did not show any evidence for arrhythmogenic cardio myopathy. It did show evidence for the prior ablation Today he underwent a diagnostic EP study which revealed 3 distinct, focal ventricular tachycardias originating from the body of the right ventricle, anteriorly and inferiorly He underwent stepwise successful ablation of all 3 foci of VT Following that despite very aggressive ventricular immolation protocol These ventricular tachycardia foci were not originating from the right ventricular V muscles However I am still concerned about arrhythmogenic cardio myopathy, despite a normal twelve-lead EKG and normal cardiac MRI and I will send him for genetic testing for this in the near future I watched him to reduce the dose of metoprolol to 50 mrem grams twice daily Thank you for entrusting me with the care of the patient Warm regards Sincerely Ed Kat
[2020-08-22] MEDS ORDERED: ACETAMINOPHEN IV (For NPO) 1,000 MG in EMPTY BAG 1 BAG IVPB ONE (17:30)
--- NOTE | 2020-08-22 18:48 | CE ---
CARDIAC ELECTROPHYSIOLOGY REPORT Israel Cadet is a 60-year-old male patient who has a history of ventricular tachycardia which originally looked like RVOT VT. However, at his last EP study we were able to induce an RV inferoapical VT and could not induce RVOT VT. He underwent successful ablation for this. Following that, on beta blockers we put him on a treadmill and he had exercise-induced RVOT VT. Today he was brought in for an EP study and possible ablation of RVOT VT. His cardiac MRI showed evidence for prior ablation in the anteroinferior right ventricular body. There was no evidence for ARVC. His 12-lead EKG does not show any epsilon waves, either, nor does he have any T-wave inversion in the anterior precordial leads. The patient was brought to the EP lab in a fasting state. Written informed consent was obtained prior to the procedure. The procedure was performed under light sedation. The patient was quite awake through the procedure. Venous sheaths were placed in the right and left femoral veins, and via these diagnostic catheters, mapping and ablation catheters were placed. Diagnostic catheters were initially placed in the high right atrium, in the His bundle area and the right ventricle. Later intracardiac echo catheter and ablation catheter were placed in the right heart. The patient was in sinus rhythm at the start of the study. Sinus cycle length 671 milliseconds. DC interval 202 milliseconds, QRS 97 milliseconds and QT 382 milliseconds. AH interval 114 milliseconds and HV interval 37 milliseconds. AV node Wenckebach block 330 milliseconds. Sinus node recovery time at a paced cycle length of 600 milliseconds was 890 milliseconds. Please note that the patient had stopped beta blockers for at least 5 days prior to the study. Burst stimulation was performed from the right ventricle and when pacing at 390 milliseconds, ventricular tachycardia was induced. This ventricular tachycardia appeared to be from the inferior wall of the right ventricle. This terminated spontaneously but was sustained. Thereafter, with EP study and during mapping, 3 ventricular tachycardias were induced: 1. Low RVOT VT. This was mapped to the anterior RVOT, low RVOT. A pace map was 96% concordant with this ventricular tachycardia. Activation mapping was also performed, and the earliest site on the activation map and the best pace map were within half a centimeter of each other. RF ablation was applied at both sites and slightly inferior to these sites, and thereafter this ventricular tachycardia was rendered noninducible. 2. VT number 2 originated from the body of the right ventricle and the anterior wall, and pace mapping as well as activation mapping was performed. The pace map was 98% concordant with the VT. RF ablation was applied and successful ablation was performed and thereafter this VT could not be induced. 3. The third VT induced was from the mid inferior wall of the right ventricle. Pace mapping here resulted in a 98% concordant match. RF ablation was applied here, and thereafter VT could not be induced. Following that, EP study was performed, burst stimulation was performed, extrastimulation was performed from the right ventricle. No VT was induced. High-dose Isuprel started wide open, thereafter at 2 mcg and then subsequently at 5 mcg a full EP study was performed. Atrial pacing was performed. AV node Wenckebach block 270 milliseconds. Burst stimulation from the high right atrium from 400 milliseconds down to 300 milliseconds. No arrhythmia was induced. Ventricular stimulation was performed from 2 sites, one from the high septum and the other from the RV apex. Extrastimulation was performed up double extrastimuli. Burst stimulation was performed from 400 milliseconds down to 200 milliseconds from both sites. Testing was performed on high-dose Isuprel, low-dose Isuprel as well as during the washout. Following ablation of the 3 ventricular tachycardias from the body of the right ventricle, no further ventricular tachycardia could be induced. Intracardiac echocardiography had been performed. Three-dimensional electroanatomic mapping was performed using intracardiac echo. Thereafter, activation mapping was performed and pace mapping was performed. The foci of VT were interrogated carefully with intracardiac echo to see if there was any attachment to the papillary muscle. None was found. All catheters were then removed and the patient was transferred back to telemetry. RESULT: Diagnostic EP study revealed 3 ventricular tachycardias from the right ventricular body, one from the low RVOT anterior wall. The second ventricular tachycardia was from the mid body of the right ventricle along the anterior wall about 2 cm from the first VT. VT number 3 was from the mid inferior wall of the right ventricle, about 3.5 cm from the second VT focus. Successful VT ablation was performed and thereafter, despite a very aggressive EP stim protocol, both on and off Isuprel as well as during recovery from Isuprel, no further ventricular tachycardia could be induced. PLAN: 1. Reduce metoprolol to 50 mg twice daily. 2. Exercise stress test in early September once again to look for any exercise-induced VT. 3. His cardiac MRI is normal, but he has now had 4 ventricular tachycardia foci from the body of the right ventricle. I discussed this with his daughter and will proceed with genetic testing for arrhythmogenic cardiomyopathy. These VT foci were not papillary muscle foci in the right ventricle. Patient tolerated the procedure well without any acute complications. TREVAODL / IJN: [id number] /
[2020-08-22] MEDS ORDERED: ATORVASTATIN 20 MG TAB PO SCH (21:00)
[2020-08-22] MEDS ORDERED: DULoxetine HCL 60 MG CAPSULE.DR PO SCH (21:00)
[2020-08-22] MEDS ORDERED: PANTOPRAZOLE 40 MG TABLET PO SCH (21:00)
[2020-08-22] MEDS ORDERED: lisinopriL 20 MG TAB PO SCH (21:00)
[2020-08-22] MEDS: APIXABAN 5 MG TAB PO SCH (22:14)
[2020-08-22] MEDS: METOPROLOL TARTRATE 50 MG TAB PO SCH (22:15)
[2020-08-22] MEDS: SODIUM CHLORIDE 0.9% 1,000 ML IV SCH (22:17)
[2020-08-23] MEDS: SODIUM CHLORIDE 0.9% 1,000 ML IV SCH (05:15)
[2020-08-23 07:21] VITALS: BP 138/79; PULSE 80; RESP 20; TEMP 98.2
[2020-08-23] MEDS: APIXABAN 5 MG TAB PO SCH (08:06)
[2020-08-23] MEDS: METOPROLOL TARTRATE 50 MG TAB PO SCH (08:06)
--- NOTE | 2020-08-23 08:45 | DS ---
DISCHARGE SUMMARY Israel Cadet is a 60-year-old male patient with exercise induced ventricular tachycardia. He underwent diagnostic EP study in which we found three distinct ventricular tachycardias from the RV body all along the anterior wall. The ventricular tachycardias were extremely easily inducible. These underwent mapping and successful ablation. Following that, the tachycardia could not be induced despite a thorough EP study on high-dose Isuprel, low-dose Isuprel as well as during the washout phase. His cardiac MRI is normal and only shows his previous ablation site lesion. There is no evidence for arrhythmogenic cardiomyopathy on the MRI. On examination, he is resting comfortably in bed. His groin is tender. There is no hematoma, no swelling at all in either side. Heart sounds S1, S2 are normal. Lungs are clear. No JVD. Abdomen is soft. Extremities are warm. IMPRESSION: 1. Recurrent ventricular tachycardia originating from the right ventricular body, Three different distinct sites were ablated. He has exercise-induced ventricular tachycardia also. 2. Paroxysmal atrial fibrillation on Eliquis. SUGGEST: 1. Reduce metoprolol to 50 mg twice daily. 2. Continue Eliquis. 3. Continue all other cardiac medication including antihypertensive therapy and statins. I am still concerned about arrhythmogenic cardiomyopathy given the nature and the location of the arrhythmia. Despite the fact that the cardiac MRI is not abnormal and does not show any signs of arrhythmogenic cardiomyopathy. The VT foci areas were carefully mapped with intracardiac ultrasound and these were not papillary muscle ventricular tachycardia either. PLAN: 1. Exercise stress testing on the 16 of September. 2. Genetic testing for ARVC. 3. Follow up thereafter. MMJERARDO / CARLENEN: [id number] /
== END 2020-08-23 11:41 | disposition home or self-care (01) ==
LOC: CATHEP 10:56 → 6NMEDSUR 16:57 → CATHEP 08-23 11:41
PROVIDERS: ATTEND Internal Medicine Clinical Cardiac Electrophysiology
DX: I47.2 Ventricular tachycardia (principal); I48.0 Paroxysmal atrial fibrillation; Z79.01 Long term (current) use of anticoagulants; I10 Essential (primary) hypertension; E78.5 Hyperlipidemia, unspecified; Z88.8 Allergy status to other drugs, medicaments and biological substances; Z79.899 Other long term (current) drug therapy
CPT/HCPCS: 93623; 93662; 93654; 80048; 85025; C1894; C1769 ×2; C1759; C1732; J2250; J2001; J3010; J1644; J0131

== ENCOUNTER 2021-02-18 14:52 | Day surgery (SDC) | payer BC ==
[2021-02-13 10:22] VITALS: BMI 29.2
[~2021-02-18 14:52] MED LIST: SODIUM CHLORIDE 0.9% 1,000 ML IV SCH
[2021-02-18 15:20] VITALS: RESP 18; TEMP 98.3
[2021-02-18] MEDS ORDERED: LIDOCAINE 1% INJ 10MG/ML (20 ML MDV) ONE (17:08)
[2021-02-18] MEDS ORDERED: MIDAZOLAM 2 MG/2 ML VIAL IV ONE (17:30)
[2021-02-18] MEDS ORDERED: fentaNYL (PF) 50 MCG/ML 2 ML AMP ONE (17:31)
[2021-02-18] MEDS ORDERED: fentaNYL (PF) 50 MCG/ML 2 ML AMP IV ONE (17:33)
[2021-02-18] MEDS ORDERED: LIDOCAINE 1% INJ 10MG/ML (20 ML MDV) SQ ONE (17:35)
--- NOTE | 2021-02-18 17:44 | P.EPPROC ---
- EP Procedure Note Electrophysiology Procedure Note: Loop monitor implant Primary physicians: [employer] Solution Architect: Dr. Kat Indication: A. fib Patient was brought to the EP lab in a fasting state. Written informed consent was obtained prior to the procedure. The left pectoral area was prepped and draped per protocol. Intravenous antibiotic was administered preoperatively. A subcutaneous Loop monitor was implanted successfully and the wound was closed per protocol. The device was programmed to detect significant dona- arrhythmic and tachy-arrhythmic events, per protocol. Device and programming details: A. fib management per protocol Patient underwent EP procedure under conscious sedation/moderate sedation, monitoring of the level of consciousness and physiologic parameters including but not limited to vital signs and oxygenation. Patient tolerated the procedure well without any acute complications. Start time: 1731 Stop time: 1740
[2021-02-18 18:08] VITALS: BP 155/86; PULSE 71
== END 2021-02-18 18:21 | disposition home or self-care (01) ==
LOC: CATHEP 14:52
PROVIDERS: ATTEND Internal Medicine Clinical Cardiac Electrophysiology
DX: I48.0 Paroxysmal atrial fibrillation (principal); I47.2 Ventricular tachycardia; I44.0 Atrioventricular block, first degree; I10 Essential (primary) hypertension; E78.5 Hyperlipidemia, unspecified; Z79.01 Long term (current) use of anticoagulants; Z79.899 Other long term (current) drug therapy; Z88.8 Allergy status to other drugs, medicaments and biological substances
CPT/HCPCS: 33285; C1764; J2250; J0690; J2001; J3010

== ENCOUNTER → 2021-12-10 | Outpatient (CLI) | payer BC ==
--- NOTE | 2021-12-11 12:09 | CT ---
EXAMINATION TYPE: CT chest wo con DATE OF EXAM: 12/10/2021 COMPARISON: 04/25/2020 chest x-ray HISTORY: Sarcoidosis CT DLP: 416.1 mGycm, Automated exposure control for dose reduction was used. CONTRAST: Performed injected with 0 mL of Isovue 300. TECHNIQUE: Axial images were obtained at 5 mm thick sections. Reconstructed images are reviewed on [employer] computer in the coronal plane. FINDINGS: Portion of the thyroid visualized is normal. Multiple diffuse scattered punctate areas of pneumonitis or present throughout the bilateral lung fie lds. There is a focal consolidation or density with irregular margins measuring 2.9 cm in diameter in the periphery of the left mid lung. Series 4 image 24. Workup for neoplasm is recommended. Couple small nodules are in the periphery of the mid lungs bilaterally. Additional punctate nodularit ies are present within the mid to lower lung contreras. No enlarged mediastinal or hilar adenopathy is evident. Scattered small lymph nodes are present The ascending aorta diameter at the level of the main pulmonary artery is 4.0 cm. The main pulmonary art alycia diameter at the bifurcation is 2.2 cm. There may be some fullness of the right hilar region. Unde rlying adenopathy may be difficult to exclude without intravenous contrast. Limited CT sections are obtained through the upper abdomen. Small cyst may be in the superior liver m easuring 0.8 cm. Series 3 image 48. Upper abdomen appears unremarkable. IMPRESSIONS: 1. Irregular consolidation or mass within the left midlung. Infection such as pneumonia or neoplasm a re within the differential. Consider PET CT for additional evaluation. 2. Multiple scattered small peripheral nodules and areas of pneumonitis which are nonspecific and cou ld be related with the patient's known history of sarcoidosis. Neoplasm is not excluded.
== END | disposition home or self-care (01) ==
LOC: RADCTMAIN 09:27
PROVIDERS: ATTEND Internal Medicine Clinical Cardiac Electrophysiology
DX: J18.9 Pneumonia, unspecified organism (principal); R91.8 Other nonspecific abnormal finding of lung field; D86.9 Sarcoidosis, unspecified
CPT/HCPCS: 71250

== ENCOUNTER 2022-01-07 10:43 | Day surgery (SDC) | payer BC ==
[2022-01-06 08:40] VITALS: BMI 29.3
[~2022-01-07 10:43] MED LIST changes: +ALBUTEROL NEB (CONC) 2.5 MG/0.5 ML INHALATION ONE; +LACTATED RINGERS 1,000 ML IV SCH; +LIDOCAINE 1% (10MG/ML) FOR IV START INTRADERMA PRN; +LIDOCAINE 2% (PF) 20 MG/ML 5 ML VIAL INHALATION ONE; +LIDOCAINE VISCOUS 300 MG/15 ML CUP MUCOUS MEM ONE; +fentaNYL (PF) 50 MCG/ML 2 ML AMP IV PRN
[2022-01-07 11:15] VITALS: TEMP 96.8
[2022-01-07] MEDS ORDERED: LIDOCAINE 4% LTA KIT (4 ML) TOPICAL ONE (12:29)
[2022-01-07] MEDS ORDERED: MIDAZOLAM 2 MG/2 ML VIAL ONE (12:29)
[2022-01-07] MEDS ORDERED: PROPOFOL 10 MG/ML 20 ML VIAL IV ONE (12:29)
[2022-01-07] MEDS ORDERED: ROCURONIUM 10 MG/ML (5 ML VIAL) IV ONE (12:29)
[2022-01-07] MEDS ORDERED: SUCCINYLCHOLINE CHLORIDE 100 MG/5 ML SYR IV ONE (12:29)
[2022-01-07] MEDS ORDERED: NEOSTIGMINE 1 MG/ML 10 ML VIAL ONE (12:29)
[2022-01-07] MEDS ORDERED: GLYCOPYRROLATE 0.2 MG/ML 2 ML VIAL ONE (12:29)
[2022-01-07] MEDS ORDERED: LIDOCAINE 2% INJ 20 MG/ML (2 ML VIAL) ONE (12:29)
[2022-01-07] MEDS ORDERED: fentaNYL (PF) 50 MCG/ML 2 ML AMP ONE (12:29)
--- NOTE | 2022-01-07 13:04 | P.PCN ---
Date of Procedure: 01/07/22 Preoperative Diagnosis: Left upper lobe pulmonary infiltrate/opacity Postoperative Diagnosis: Left upper lobe pulmonary infiltrate/opacity Procedure(s) Performed: Navigation bronchoscopy ([facility]) Transbronchial biopsy left upper lobe Bronchioloalveolar lavage left upper lobe Anesthesia: JACQUE Surgeon: Rachel Cooper Climate Change Analyst #1: Karlie Watkins Estimated Blood Loss (ml): 0 Pathology: other Condition: stable Disposition: same day Description of Procedure: The patient had a preoperative computed tomography scan of the chest using the [facility] protocol. The CAT scan images were reviewed. The left upper lobe opacity was identified it was mapped appropriately. The CAT scan images are uploaded into a USB and then into the [employer] Navigation tower. After obtaining the consent the patient was taken to the OR suite he was intubated and put on mechanical ventilation by anesthesia then the scope was advanced to the ET tube until the Trachea was seen and it was normal and then the maciel appears normal then the scope advanced to the left main and JENNIFER LB1- LB3 were seen and no endobronchial lesions were seen , however, the orifice of the anterior segment of the left upper lobe was quite narrowed with some inflammatory changes surrounding the orifice. I was able to pass the bronchoscope and visualized the various segments and the anterior segment of the left upper lobe.. Then the scope advanced to the lingula and the LB4 and LB5 were seen and no endobronchial lesions were seen the scope retracted and advanced to the left lower lobes LB6 to LB12 were seen one by one and no endobronchial lesions, and similar amount of narrowing of the left lower lobe bronchus was seen inflammatory changes growing circumferentially around the airway. Then the scope was retracted back to the maciel and advanced to the Right main and RUL RB1 and RB2 and RB3 were seen one by one and no endobronchial lesions were seen the scope. The bronchoscope was then retracted and advanced to the BI and RML RB4 and RB5 were seen and no endobronchial lesions were seen then it was retracted and advanced to the RLL RB6 to RB12 were seen one by one and no endobronchial lesions. Navigation bronchoscopy was performed. The main maciel and the secondary maciel on the left were used as the reference points and appropriate calibration was done. Following that, using a navigation guidance , the bronchoscope was advanced to the left upper lobe anterior segment and various transbronchial biopsies, without any complications. I also performed a bronchioloalveolar lavage of the left upper lobe anterior segment and a total of 80 mL of fluid was infused and 20 mL was suctioned back and this will be sent for cytology and microbial cultures. The bronchoscope was removed, the patient will be extubated and then transferred to recovery. A follow-up chest x-ray will be done in recovery.
--- NOTE | 2022-01-07 13:53 | XR ---
EXAMINATION TYPE: XR chest 1V DATE OF EXAM: 01/07/2022 COMPARISON: X-ray dated 04/25/2020 HISTORY: Postbronchoscopy TECHNIQUE: Single frontal view of the chest is obtained. FINDINGS: Thick atelectasis/consolidation is seen in the left midlung zone which could represent focal pneumoni a however underlying lesion can't be excluded. Grossly unremarkable remainder of the lungs. No sizable pleural effusion. No obvious pneumothorax. No gross cardiomegaly. Dextroscoliosis of the thoracic spine. IMPRESSION: As above.
[2022-01-07 13:58] VITALS: RESP 20
--- NOTE | 2022-01-07 14:08 | CT ---
EXAMINATION TYPE: CT Chest wo con [facility] Protocol DATE OF EXAM: 01/07/2022 COMPARISON: CT dated 12/10/2021 HISTORY: pre-op bronch CT DLP: 596 mGycm Automated exposure control for dose reduction was used. TECHNIQUE: Unenhanced CT scan of the chest as per [facility]AN protocol. FINDINGS: Again noted is the irregular opacity in the left midlung zone measuring roughly 2 x 3.5 cm. Surroundi ng multiple micronodularity is noted. Smaller similar appearance is seen in the lower lobes centrally with micronodularity in the right upper and to a lesser extent middle and lower lobes. Millimetric n odules are seen in the left upper lobe and left lower lobe as well as the lingula measuring up to 8mm . Patent trachea and main bronchi. Questionable small tracheal diverticulum at the right posterolateral aspect of the upper trachea. No pleural or pericardial effusion. Slight cardiomegaly. The ascending aorta measures 3.9 cm. Suboptimal assessment for hilar lymphadenopathy. No pathologically enlarged me diastinal or axillary lymphadenopathy. Suspected left hepatic lobe cyst. No gross aggressive bone les ion. IMPRESSION: The above described pulmonary changes could be related to acute inflammatory/infectious process (incl uding atypical infection), however lung cancer with metastatic nodules or metastatic lesions cannot b e excluded. Further PET scan assessment can be considered. Other findings as described above.
[2022-01-07 14:13] VITALS: BP 111/73; PULSE 71
== END 2022-01-07 14:24 | disposition home or self-care (01) ==
LOC: ORWHC2ENDO 10:43
PROVIDERS: ATTEND Internal Medicine Critical Care Medicine
DX: J84.10 Pulmonary fibrosis, unspecified (principal); I48.0 Paroxysmal atrial fibrillation; I47.2 Ventricular tachycardia; G47.33 Obstructive sleep apnea (adult) (pediatric); E78.5 Hyperlipidemia, unspecified; D86.9 Sarcoidosis, unspecified; Z88.8 Allergy status to other drugs, medicaments and biological substances; Z79.899 Other long term (current) drug therapy; Z83.3 Family history of diabetes mellitus; Z82.3 Family history of stroke; Z81.8 Family history of other mental and behavioral disorders; Z91.030 Bee allergy status; Z79.01 Long term (current) use of anticoagulants; Z80.0 Family history of malignant neoplasm of digestive organs
CPT/HCPCS: 88305; 71045; 71250; 31628; 31624; 31627; J2250; J2710; J3010; J0330; J2704; J2001; 88108; 88312

== ENCOUNTER → 2022-01-16 | Outpatient (CLI) | payer BC ==
[2022-01-16 14:43] LABS: Basophils # (A) 0.06 X 10*3/uL (0.00-0.10); Basophils % (A) 1.3 %; Eosinophils # (A) 0.29 X 10*3/uL (0.04-0.35); Eosinophils % (A) 6.4 %; HCT 38.5 % (39.6-50.0); HGB 12.8 g/dL (13.0-17.0); Immature Grans, Automated 0.7 %; Lymphocytes # (A) 1.01 X 10*3/uL (0.90-5.00); Lymphocytes % (A) 22.4 %; MCH 27.6 pg (27.0-32.0); MCHC 33.2 g/dL (32.0-37.0); MCV 83.2 fL (80.0-97.0); Mean Platelet Volume 10.7 fL (9.5-12.2); Monocytes # (A) 0.61 X 10*3/uL (0.20-1.00); Monocytes % (A) 13.5 %; NRBC Per 100 WBC 0 /100 WBCS (0.0-0.0); Neutrophils # (A) 2.51 X 10*3/uL (1.80-7.70); Neutrophils % (A) 55.7 %; Platelet Count 262 X 10*3/uL (140-440); RBC 4.63 X 10*6/uL (4.40-5.60); RDW 13.2 % (11.5-14.5); WBC 4.51 X 10*3/uL (4.50-10.00)
[2022-01-16 15:07] LABS: Erythrocyte Sedimentation Rate 21 mm/Hr (0-20)
[2022-01-16 15:11] LABS: ALT 23 U/L (10-49); AST 20 U/L (14-35); African American GFR (CKD) 85.4 (60.0-200.0); Albumin 4.5 g/dL (3.8-4.9); Albumin/Globulin Ratio 1.73 (1.60-3.17); Alkaline Phosphatase 97 U/L (41-126); BUN/Creat Ratio 19.44 Ratio (12.00-20.00); Calcium 9.6 mg/dL (8.7-10.3); Carbon Dioxide 23.1 mmol/L (20.0-27.5); Chloride 105 mmol/L (96-109); Globulin 2.6 g/dL (1.6-3.3); Glucose 102 mg/dL (70-110); Non-African American GFR(CKD) 73.7 (60.0-200.0); Potassium 4.9 mmol/L (3.5-5.5); Sodium 139 mmol/L (135-145); Total Bilirubin <0.15 mg/dL (0.30-1.20); Total Protein 7.1 g/dL (6.2-8.2)
== END | disposition home or self-care (01) ==
LOC: LABWHC1 08:27
PROVIDERS: ATTEND Internal Medicine Critical Care Medicine
DX: D86.9 Sarcoidosis, unspecified (principal)
CPT/HCPCS: 36415; 80053; 82164; 85025; 85652; 87107

== ENCOUNTER → 2022-06-22 | Outpatient (CLI) | payer BC ==
[2022-06-22 15:07] LABS: HCT 37.8 % (39.6-50.0); HGB 12.2 g/dL (13.0-17.0); MCH 25.8 pg (27.0-32.0); MCHC 32.3 g/dL (32.0-37.0); MCV 79.9 fL (80.0-97.0); Mean Platelet Volume 10.1 fL (9.5-12.2); NRBC Per 100 WBC 0 /100 WBCS (0.0-0.0); Platelet Count 303 X 10*3/uL (140-440); RBC 4.73 X 10*6/uL (4.40-5.60); RDW 18.9 % (11.5-14.5); WBC 5.32 X 10*3/uL (4.50-10.00)
[2022-06-22 15:22] LABS: African American GFR (CKD) 93.1 (60.0-200.0); Anion Gap 12.3 mmol/L (10.00-18.00); Blood Urea Nitrogen 18.9 mg/dL (9.0-27.0); Carbon Dioxide 23.7 mmol/L (20.0-27.5); Non-African American GFR(CKD) 80.3 (60.0-200.0); Potassium 4.8 mmol/L (3.5-5.5)
== END | disposition home or self-care (01) ==
LOC: LABPAT 10:08
PROVIDERS: ATTEND Internal Medicine Clinical Cardiac Electrophysiology
DX: Z01.812 Encounter for preprocedural laboratory examination (principal); I44.0 Atrioventricular block, first degree; I47.20 Ventricular tachycardia, unspecified; I48.0 Paroxysmal atrial fibrillation
CPT/HCPCS: 80051; 82565; 84520; 85027

== ENCOUNTER → 2023-03-31 | Outpatient (CLI) | payer BC ==
--- NOTE | 2023-03-31 20:15 | US ---
EXAMINATION TYPE: US kidneys/renal and bladder DATE OF EXAM: 03/31/2023 COMPARISON: 03/29/2018 CLINICAL INDICATION: Male, 62 years old with history of R31.0 GROSS HEMATURIA; Gross hematuria, no lo nger occurring EXAM MEASUREMENTS: Right Kidney: 10.7 x 5.4 x 4.5 cm Left Kidney: 11.8 x 4.9 x 4.4 cm Right Kidney: wnl Left Kidney: two echogenic shadowing areas noted near inferior pole (stone vs calcified vessel) Bladder: wnl, prostate appears to protrude into posterior bladder vs other Bilateral Jets seen: Yes There is no evidence for hydronephrosis at this point in time. No masses are identified. The urinar y bladder is anechoic. Bilateral ureteral jets are seen. IMPRESSION: 1. No evidence for obstructive uropathy. 2. Left inferior pole calculus versus prominent renal sinus fat.
== END | disposition home or self-care (01) ==
LOC: RADUSWWP 16:10
PROVIDERS: ATTEND Urology
DX: R31.0 Gross hematuria (principal)
CPT/HCPCS: 76770